=== PATIENT | male | born 1955 | race Caucasian/White ===

== ENCOUNTER 2019-06-29 12:32 | Outpatient (CLI) | payer OTHER, SELFPAY ==
--- NOTE | 2019-06-29 | XR_ITS ---
WS: [id number] RIGHT SHOULDER: 3 VIEW(S) TECHNIQUE: Internal and external rotation with Y view. HISTORY: ROTATOR CUFF TEAR RIGHT COMPARISON: None available. Moderate narrowing of the AC joint. Osteophytes from the distal clavicle and the acromion. 3 mm osteo phyte extends towards the rotator cuff. Glenohumeral joint is well-maintained. No fractures or bone destruction. Visualized RIGHT upper lung is clear. XR/XR shoulder RT min 2V* [id number] IMPRESSION: Moderate AC joint arthropathy. Osteophytes may be causing impingement upon the rotator cuff.
== END 2019-06-29 12:33 | disposition home or self-care (01) ==
LOC: RADOUTREAD 06-30 06:59
PROVIDERS: Visit Provider Internal Medicine
DX: M75.101 Unspecified rotator cuff tear or rupture of right shoulder, not specified as traumatic (principal); M25.711 Osteophyte, right shoulder

== ENCOUNTER 2020-05-30 13:39 | Outpatient (CLI) | payer OTHER, SELFPAY ==
[2020-05-30 16:11] LABS: Basophils # 0.1 10^3/uL (0.0-0.1); Basophils % 1.4 %; Eosinophils # 0.4 10^3/uL (0.0-0.8); Eosinophils % 5.2 %; Hematocrit 46.3 % (42.0-52.0); Hemoglobin 15.4 g/dL (11.7-16.6); Lymphocytes # 1.2 10^3/uL (0.8-4.8); Lymphocytes % 16.2 %; Mean Corpuscular HGB Conc 33.3 g/dL (30.0-36.0); Mean Corpuscular Hemoglobin 28.7 pg (28.0-34.0); Mean Corpuscular Volume 86.2 fL (80-94); Mean Platelet Volume 10.6 fL (7.4-10.4); Monocytes # 0.4 10^3/uL (0.2-0.9); Monocytes % 5.6 %; Neutrophils # 5.11 10^3/uL (1.8-7.7); Neutrophils % 71.3 %; Nucleated Red Blood Cells % 0 %; Platelet Count 622 10^3/cmm (130-400); Red Blood Count 5.37 10^6/uL (4.1-5.3); Red Cell Distribution Width 13.9 % (12.1-15.1); White Blood Count 7.2 10^3/uL (4.0-10.0)
[2020-05-30 16:20] LABS: LAB Peripheral Smear Sent for Review
[2020-05-30 16:46] LABS: Alanine Aminotransferase 13 U/L (0-41); Albumin Level 3.9 g/dL (3.5-5.2); Alkaline Phosphatase 76 IU/L (40-130); Anion Gap 12.8 (5-19); Aspartate Amino Transferase 17 U/L (0-40); Blood Urea Nitrogen 8 mg/dL (8-23); Calcium 8.7 mg/dL (8.5-10.5); Carbon Dioxide 26 mmol/L (22-29); Chloride 103 mmol/L (98-107); Globulin 2.5 g/dL (1.3-4.6); Glomerular Filtration Rate 97.3 mL/min (90-130); Glucose 81 mg/dL (65-115); Lactate Dehydrogenase 225 U/L (135-225); Osmolality Calculated 283 mOsm/kg (285-295); Potassium 3.8 mmol/L (3.5-5.1); Sodium 138 mmol/L (136-145); Total Bilirubin 0.4 mg/dL (0.15-1.2); Total Protein 6.4 g/dL (6.6-8.7)
[2020-05-30 17:20] LABS: Erythrocyte Sedimentation Rate 8 mm/hr (0-10)
--- NOTE | 2020-05-30 19:26 | ONC CON_ITS ---
Dr. Marin New Patient Note Patient: Manas Whitman Unit #: [id number]: 1955 Dicatated By: Ish Marin M.D.Date of Visit: May 30, 2020 Onc MED New Patient/Consult Referring Physician: Dr. Ish Pretty M.D. Chief Complaint: Elevated platelet count. History of Present Illness: This is a 65-year-old man with known Jpcpqiv-Itvqm-Efced disease. I am asked to see him because of an elevated platelet count. In January had been in to see Dr. Pretty for a yearly checkup. His CBC at that time showed a mildly elevated platelet count at 653,000. The remainder of his CBC included a normal hemoglobin at 15.4 g with hematocrit 46%. The white blood cell count was 10,200 with a differential showing 84% granulocytes, 10% lymphocytes, and 4% monocytes. Comprehensive metabolic profile at that time was unremarkable. His repeat CBC on 03/07/2020 showed similar findings with hemoglobin 15.9 g, white blood cell count 9600, and platelet count 646,000. The most recent study, from 04/18/2020 also showed similar results with hemoglobin of 15.8 g, white blood cell count 8300, and platelet count 776,000. He does complain that his energy lately has been crappy, though he is still able to do light work. He thinks some of this may just be anxiety related, as he is in the process of moving and he also is going to be retiring within the next few days. He has good appetite. His weight has been stable. He has no fever or night sweats. He does report having some cough. He does not complain of shortness of breath or chest pain. He has no GI/ complaints other than his bowels tend to be loose, that he attributes to diet. He has some chronic pain and neuropathy associated with the Qfvsrbx-Gwwlr-Gaqdg disease. The pain may have worsened somewhat recently, but he again thinks that it may just be anxiety related. For the past couple of years he has been bruising more easily, but he does admit to taking ibuprofen on a fairly regular basis. He has no history of any thromboembolic disease. Past Medical History: His medical history includes anxiety, Ysdsdeb-Lzwev-Oeteh disease, degenerative disease of the spine, migraine headaches, and peripheral neuropathy. Past Surgical History: His surgical/procedural history includes arthroscopic left knee surgery, C4-5 discectomy, multiple right foot surgeries, and vasectomy. Medications: Ibuprofen Capsule Oral PRN, Sildenafil Citrate 1 Tablet (of 20 mg) Oral daily, traMADol HCl 1 Tablet (of 50 mg) Oral b.i.d., Tylenol Tablet Oral PRN, Xanax 1 Tablet (of 0.25 mg) Oral daily Allergies: Bee Venom, Morphine Sulfate, and Penicillins. Social History: Mr. Whitman is . 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 He will be retiring within the next few days. He had smoked cigarettes in the past, but he quit 40 years ago and was smoke-free for 20 years. He has since then been smoking 3 to 4 cigars/week. He has social alcohol use. Family History: His father at age 89 with complications of mycobacterium avium infection. Mother is still living at age 93 and she has Ovtxywd-Oyimn-Dxhoa disease, as does his brother, age 63. His maternal grandmother had leukemia. Review Of Symptoms: Constitutional - He says his energy is crappy. He thinks that may just be related to anxiety. Appetite is good and weight is stable. No fever or night sweats. ECOG score is 1, Eyes - No recent change in vision, ENMT - He has some hearing loss on the left. No tinnitus. No sinus congestion/drainage. No mouth sores. No sore throat or difficulty swallowing, Hematologic/Lymphatic - He has had easy bruising for the past couple of years, Respiratory - No shortness of breath. He does have some cough cough. No pleuritic pain or hemoptysis, Cardiovascular - No angina pain. No palpitations, Gastrointestinal - No nausea or vomiting. He has occasional acid reflux. His bowels tend to be loose, attributable to diet. No blood in the stool or black stools, Genitourinary (M) - No dysuria or hematuria. No urinary frequency. No urgency or incontinence, Musculoskeletal - He has chronic pain associated with his Naylyoq-Muyrr-Nebuh. He thinks he may have some component of fibromyalgia, Integumentary - No skin rash, Neurologic - He has ocular migraine headaches, estimated at 3 to 4/month. He had an episode of vertigo which was severe enough to require hospitalization. Since then he has mild episodes on an occasional basis. He has numbness/tingling associated with Oqgkbpq-Wteai-Oluij, Psychiatric - He has some chronic anxiety. Recently he has had difficulty sleeping. Vital Signs: Performed on May 30, 2020 14:18: 0, 26.28, 2.15 sq.m, 73.00 in, 99 %, 61 /min, 20 /min, 152/88 mm(hg) (HIGH), 98.8 F, and 199.2 lbs (HIGH). Physical Examination: Constitutional - He looks pretty good generally, Eyes - Sclerae nonicteric. Conjunctivae clear, ENMT - No lesions noted in the oral cavity, Hematologic/Lymphatic - No cervical, clavicular, or axillary adenopathy, Respiratory - Lungs are clear with good air movement bilaterally, Cardiovascular - Heart rhythm is regular. There is no murmur, gallop, or rub noted, Abdomen - Soft. Liver and spleen are not enlarged. There is no abdominal mass or ascites noted and there is no inguinal adenopathy, Extremities - No edema, Integumentary - No rashes. No suspicious skin lesions noted, Neurologic - He does not appear to have any focal neurologic deficit. Impression: 1. Patient with mildly elevated platelet count. The cause is uncertain. However, there is nothing in his clinical evaluation to suggest reactive thrombocytosis and with his other blood counts being normal, this does appear to be very suspicious for essential thrombocythemia. 2. He also has lymphopenia. The cause/clinical significance is uncertain. 3. He has known Vrwwhyp-Rfzaw-Dnsyn disease with peripheral neuropathy. His other medical illnesses include: 4. Degenerative disease of the spine. 5. Chronic migraine. 6. Chronic anxiety. Plan: The laboratory findings were reviewed with the patient and we discussed the clinical implications. He has findings which are very suspicious for essential thrombocythemia, though other myeloproliferative process would be possible and at this point I cannot entirely exclude the possibility of reactive thrombocytosis. At this point I will obtain additional laboratory studies to include CBC, comprehensive metabolic profile, sed rate, LDH level, and a molecular panel for myeloproliferative disease. I will review the blood smear. He will have further evaluation as indicated. Signed By: Ish Marin M.D. <<Signature on File>>
[2020-06-09 21:07] LABS: JAK2 V617 Block Specimen ID NG; JAK2 V617 Clinical Indication NG; JAK2 V617 Mutation DETECTED (NOT DETECTED); JAK2 V617 Specimen Source NG
== END 2020-05-30 13:40 | disposition home or self-care (01) ==
LOC: ONCMED 13:43
PROVIDERS: PCP Internal Medicine; Visit Provider Internal Medicine Medical Oncology
DX: D47.3 Essential (hemorrhagic) thrombocythemia (principal); R53.83 Other fatigue; G60.0 Hereditary motor and sensory neuropathy; M47.9 Spondylosis, unspecified; G43.709 Chronic migraine without aura, not intractable, without status migrainosus; F41.9 Anxiety disorder, unspecified
CPT/HCPCS: 36415; 80053; 81219; 83615; 85025; 85651; 99204

== ENCOUNTER 2020-06-13 08:51 | Outpatient (CLI) | payer OTHER, SELFPAY ==
--- NOTE | 2020-06-13 12:24 | ONC FU_ITS ---
Dr. Marin Patient Follow-Up Note Patient: Manas Whitman Unit #: [id number]: 1955 Dicatated By: Ish Marin M.D.Date of Visit:Jun 13, 2020 Onc Med Follow-up/Prog Note Chief Complaint: Thrombocythemia. History of Present Illness: This is a 65-year-old man with an elevated platelet count and suspected thrombocythemia. In January had been in to see Dr. Pretty for a yearly checkup. His CBC at that time showed a mildly elevated platelet count at 653,000. The remainder of his CBC included a normal hemoglobin at 15.4 g with hematocrit 46%. The white blood cell count was 10,200 with a differential showing 84% granulocytes, 10% lymphocytes, and 4% monocytes. Comprehensive metabolic profile at that time was unremarkable. His repeat CBC on 03/07/2020 showed similar findings with hemoglobin 15.9 g, white blood cell count 9600, and platelet count 646,000 and a subsequent study from 04/18/2020 also showed similar results with hemoglobin of 15.8 g, white blood cell count 8300, and platelet count 776,000. I had seen him initially on 05/30/2020. His CBC showed similar findings with hemoglobin 15.4 g 10 hematocrit 46.3%, white blood cell count 7200, and platelet count 622,000. His blood smear showed numerous large platelet forms, including some giant platelets. His LDH was at the upper limit of normal at 225 U/L. On his molecular analysis the JAK2 V617F mutation was detected. His medical history is significant for known Qcadspr-Zciew-Rlixi disease with associated peripheral neuropathy. His other medical illnesses include degenerative disease of the spine, migraine headaches, and chronic anxiety. His seen today to discuss lab results and further management. He is feeling pretty good generally. His energy lately has been OK. His ECOG score is 1. Medications: Ibuprofen Capsule Oral PRN, Sildenafil Citrate 1 Tablet (of 20 mg) Oral daily, traMADol HCl 1 Tablet (of 50 mg) Oral b.i.d., Tylenol Tablet Oral PRN, Xanax 1 Tablet (of 0.25 mg) Oral daily Allergies: Bee Venom, Morphine Sulfate, and Penicillins. Vital Signs: Performed on Jun 13, 2020 08:53 Height - 73.00 in Weight - 195.0 lbs (LOW) BSA - 2.13 sq.m BMI - 25.73 Temperature - 98.4 F Pulse - 64 /min Respiration - 18 /min BP - 154/82 mm(hg) (HIGH) O2 Sat - 98 % Pain - 0 Physical Examination: Constitutional - He looks good generally, Abdomen - Spleen is not palpable. Lab/Imaging: Test performed on May 30, 2020 15:35 LDH (Total) 225 U/L Sodium 138 mmol/L Potassium 3.8 mmol/L Chloride 103 mmol/L CO2 26 mmol/L Anion Gap 12.8 BUN 8 mg/dL Creatinine 0.8 mg/dL Cr Clearance (Est) 119.2200 mL/min eGFR 97.3 mL/min Glucose 81 mg/dL Osmolality - Calculated 283 mOsm/kg Calcium 8.7 mg/dL Protein, Total 6.4 g/dL Albumin 3.9 g/dL Globulin 2.5 g/dL Bilirubin, Total 0.4 mg/dL ALT (SGPT) 13 U/L AST (SGOT) 17 U/L Alkaline Phosphatase 76 IU/L ESR (Sed Rate) 8 mm/hr WBC 7.2 10 3/uL RBC 5.37 10 6/uL HGB 15.4 g/dL HCT 46.3 % MCV 86.2 fL MCH 28.7 pg MCHC 33.3 g/dL RDW 13.9 % Platelet Count 622 10 3/cmm MPV 10.6 fL Neutrophils 5.11 10 3/uL Lymphocytes 1.2 10 3/uL Monocytes 0.4 10 3/uL Eosinophils 0.4 10 3/uL Basophils 0.1 10 3/uL Neutrophil % 71.3 % Lymphocyte % 16.2 % Monocyte % 5.6 % Eosinophil % 5.2 % Basophils % 1.4 % NRBC % 0 % Impression: 1. Patient with mild to moderately elevated platelet count. His laboratory studies and clinical presentation appear consistent with essential thrombocythemia. 2. He also has lymphopenia. The cause/clinical significance is uncertain. 3. He has known Ayewepc-Pmjny-Avgsw disease with peripheral neuropathy. His other medical illnesses include: 4. Degenerative disease of the spine. 5. Chronic migraine. 6. Chronic anxiety. Plan: The laboratory results were reviewed with the patient and we discussed the clinic complications. With the molecular study being positive for the JAK2 V617F mutation, he clearly has a myeloproliferative neoplasm. This is most likely going to be essential thrombocythemia. With his age greater than 60 and with the positive mutation study, he is in a high risk subgroup and he will therefore be recommended to have treatment with hydroxyurea along with aspirin prophylaxis. However, prior to starting treatment he is recommended to undergo bone marrow aspiration/biopsy to complete his initial evaluation. Qemg-ki-eopd time with patient was 30 minutes, greater than 50% spent in counseling/discussion. Signed By: Ish Marin M.D. <<Signature on File>>
== END 2020-06-13 08:52 | disposition home or self-care (01) ==
LOC: ONCMED 08:53
PROVIDERS: PCP Internal Medicine; Visit Provider Internal Medicine Medical Oncology
DX: D47.3 Essential (hemorrhagic) thrombocythemia (principal); D72.810 Lymphocytopenia; G60.0 Hereditary motor and sensory neuropathy; M47.9 Spondylosis, unspecified; G43.709 Chronic migraine without aura, not intractable, without status migrainosus; F41.9 Anxiety disorder, unspecified
CPT/HCPCS: 99214

== ENCOUNTER → 2020-06-28 14:54 | Outpatient (BNVA) | payer OTHER, SELFPAY | PROVIDERS: PCP Internal Medicine | DX: Z11.59 Encounter for screening for other viral diseases (principal) | CPT/HCPCS: 87635 ==

== ENCOUNTER 2020-06-30 10:15 | Day surgery (SDC) | payer OTHER, SELFPAY ==
[2020-06-30] VITALS (7 sets, daily range): BP systolic 105–160; BP diastolic 61–96; PULSE 62–70; RESP 14–24; TEMP 36.3; O2SAT 96–100
--- NOTE | 2020-06-30 10:54 | ANES.PREANE2 ---
Pre-Anesthetic Assessment Pre-Anesthetic Assessment: Height/Weight: Height 1.85 m Temp Pulse Resp BP Pulse Ox 97.3 F L 67 16 145/94 97 06/30/20 10:30 06/30/20 10:30 06/30/20 10:30 06/30/20 10:30 06/30/20 10:30 Preop Diagnosis: Bone Marrow biopsy Proposed Procedure: Operation Date: 06/30/20 11:00 Proposed Procedures p Bone Marrow Biospy With Aspiration d47.3(Not Applicable) - Vickie Blackwell MD Was Beta Khoa taken within 24 hours: N/A Last intake: Intake Last Liquid Date 06/29/20 Last Liquid Time 22:00 Last Solid Date 06/29/20 Last Solid Time 22:00 Last Intake: 22:00 Social: Social History: Tobacco and No alcohol Packs per day: 2-3 cigars daily Exam: Pre-Anes Outpt Exam: alert, oriented x 3, clear to auscultation bilaterally and regular rate & rhythm Airway: Submandibular: WNL Cervical ROM: WNL MP: 1 Dentition: Full Pulmonary: Pulmonary: None reported CV/HEM: CV/HEM: None reported : : None reported Hepatic: Hepatic: None reported GI: GI: GERD (food related) Metabolic: Metabolic: None reported Musc/skel: Musc/skel: Weakness Comments: CMT, ruling out ET Neuropsych: Neuropsych: None reported Anesthetic Plan: ASA status: 3 Anesthesia: MAC Risk of > 500 ml blood loss (7ml/kg in children): No Data Anesthesia Cardiac Studies: No Data to Display
[2020-06-30] MEDS: sodium chloride 0.9% 1,000 ML 30 ML IV (11:18)
[2020-06-30 11:32] LABS: Basophils # 0.1 10^3/uL (0.0-0.1); Basophils % 1.7 %; Eosinophils # 0.4 10^3/uL (0.0-0.8); Eosinophils % 5.5 %; Hematocrit 50.1 % (42.0-52.0); Hemoglobin 16.3 g/dL (11.7-16.6); Lymphocytes # 1.1 10^3/uL (0.8-4.8); Lymphocytes % 14.5 %; Mean Corpuscular HGB Conc 32.5 g/dL (30.0-36.0); Mean Corpuscular Hemoglobin 28.1 pg (28.0-34.0); Mean Corpuscular Volume 86.2 fL (80-94); Mean Platelet Volume 10.7 fL (7.4-10.4); Monocytes # 0.5 10^3/uL (0.2-0.9); Monocytes % 6.7 %; Neutrophils # 5.42 10^3/uL (1.8-7.7); Neutrophils % 71.3 %; Nucleated Red Blood Cells % 0 %; Platelet Count 780 10^3/cmm (130-400); Red Blood Count 5.81 10^6/uL (4.1-5.3); Red Cell Distribution Width 14.5 % (12.1-15.1); White Blood Count 7.6 10^3/uL (4.0-10.0)
--- NOTE | 2020-06-30 11:52 | PM.BMB ---
Bone Marrow Biopsy Bone Marrow Biopsy: I was consulted by [] office regarding bone marrow biopsy on [Manas Whitman]. Briefly, the patient is a [65] year old [male] with [thrombocytosis]. In the Outpatient Services Department, with nursing staff and laboratory technologists in attendance, the procedure was discussed with the patient. Appropriate consent form had been signed. Appropriate alternatives, benefits and risks of procedure were discussed with the patient and he was pre-operatively assessed with a history and physical by myself and cleared for the biopsy procedure. The patient did request IV sedation and that was provided by the Anesthesia Department. under aseptic condition right posterior iliac area was cleaned and prepped and local anesthesia was given about 15 cc of bone marrow aspirate and core biopsy was obtained . Patient tolerated the procedure well and postprocedure nursing instructions were given. . Specimen was sent for routine histopathology, flow cytometry cytogenetics , and MPS panel Thank you for allowing me to participate in this patient's care and diagnosis. Coding Level of Care Code Acute Track Laying Supervisor for Singh Villarreal
[2020-07-01 14:07] LABS: Miscellaneous Test See Scanned Lab Rpt
== END 2020-06-30 12:23 | disposition home or self-care (01) ==
PROVIDERS: PCP Internal Medicine; Visit Provider Internal Medicine Hematology & Oncology
PROC: 07DT3ZX Extraction of Bone Marrow, Percutaneous Approach, Diagnostic (ICD-10-PCS; CPT 38222; principal; 2020-06-30 11:00)
DX: D47.3 Essential (hemorrhagic) thrombocythemia (principal)
CPT/HCPCS: 12345; 36415; 38222; 85025; 88184; 88185; 88237; 88264; 88305; J7030

== ENCOUNTER 2020-07-15 08:51 | Outpatient (CLI) | payer OTHER, SELFPAY ==
--- NOTE | 2020-07-17 09:46 | ONC FU_ITS ---
Dr. Marin Patient Follow-Up Note Patient: Manas Whitman Unit #: [id number]: 1955 Dicatated By: Ish Marin M.D.Date of Visit:Jul 15, 2020 Onc Med Follow-up/Prog Note Chief Complaint: Thrombocythemia. History of Present Illness: This is a 65-year-old man with an elevated platelet count and suspected thrombocythemia. In January had been in to see Dr. Pretty for a yearly checkup. His CBC at that time showed a mildly elevated platelet count at 653,000. The remainder of his CBC included a normal hemoglobin at 15.4 g with hematocrit 46%. The white blood cell count was 10,200 with a differential showing 84% granulocytes, 10% lymphocytes, and 4% monocytes. Comprehensive metabolic profile at that time was unremarkable. His repeat CBC on 03/07/2020 showed similar findings with hemoglobin 15.9 g, white blood cell count 9600, and platelet count 646,000 and a subsequent study from 04/18/2020 also showed similar results with hemoglobin of 15.8 g, white blood cell count 8300, and platelet count 776,000. I had seen him initially on 05/30/2020. His CBC showed similar findings with hemoglobin 15.4 g 10 hematocrit 46.3%, white blood cell count 7200, and platelet count 622,000. His blood smear showed numerous large platelet forms, including some giant platelets. His LDH was at the upper limit of normal at 225 U/L. On his molecular analysis the JAK2 V617F mutation was detected. He underwent bone marrow aspiration/biopsy on 06/30/2020. The cellularity was normal, averaging 30 to 50%. Megakaryocytic hyperplasia was noted with several bizarre megakaryocyte forms and megakaryocyte clusters identified. There was no significant reticulin fibrosis seen on the reticulin stain. Iron stores appeared adequate and there were no ring sideroblasts identified. Rare benign-appearing lymphoid aggregates were noted on the core biopsy. The standard chromosome analysis was normal. Overall, the findings were consistent with essential thrombocythemia. His medical history is significant for known Uairnju-Hftun-Pquuo disease with associated peripheral neuropathy. His other medical illnesses include degenerative disease of the spine, migraine headaches, and chronic anxiety. He returns today for review of the bone marrow findings and to discuss further management. His main complaint is that he is still having significant fatigue. This is a fairly recent onset. He initially thought it might just be due to the fact that he was retiring, but it has persisted. He has otherwise been feeling okay. He indicates that he has a tendency to bleed easily from minor cuts. However, he does not have easy bruising or other bleeding manifestations. He has had no prior thromboembolism. Medications: Ibuprofen Capsule Oral PRN, Sildenafil Citrate 1 Tablet (of 20 mg) Oral daily, traMADol HCl 1 Tablet (of 50 mg) Oral b.i.d., Tylenol Tablet Oral PRN, Xanax 1 Tablet (of 0.25 mg) Oral daily Allergies: Bee Venom, Morphine Sulfate, and Penicillins. Problem List: 1. Essential thrombocythemia. 2. He also has lymphopenia. The cause/clinical significance is uncertain. 3. He has known Pcxtucb-Ixllu-Ltvdh disease with peripheral neuropathy. 4. Degenerative disease of the spine. 5. Chronic migraine. 6. Chronic anxiety. Problems Addressed with this Encounter and Plan: Essential thrombocythemia. Molecular analysis was positive for the JAK2 (V617F) mutation. His bone marrow aspiration/biopsy showed no significant reticulin fibrosis. With his age greater than 60 and with the molecular analysis positive for the JAK2 mutation, he is in the high risk category. Per NCCN guidelines, he is recommended to have treatment with hydroxyurea together with aspirin prophylaxis. As such, he will now begin hydroxyurea at 500 mg twice daily together with aspirin 81 mg daily. His blood counts will be monitored weekly and the hydroxyurea dosage will be adjusted accordingly. I reviewed side effects associated with the hydroxyurea, the most significant of which would be low blood counts. He is concerned about the possibility of it interacting with his Loooqvz-Pdnti-Pthrz disease. To my knowledge there is no significant risk associated with that. He will be scheduled for a follow-up visit in 2 weeks. Signed By: Ish Marin M.D. <<Signature on File>>
== END 2020-07-15 08:52 | disposition home or self-care (01) ==
LOC: ONCMED 08:53
PROVIDERS: PCP Internal Medicine; Visit Provider Internal Medicine Medical Oncology
DX: D47.3 Essential (hemorrhagic) thrombocythemia (principal); G60.0 Hereditary motor and sensory neuropathy; D72.810 Lymphocytopenia; M48.9 Spondylopathy, unspecified; G43.709 Chronic migraine without aura, not intractable, without status migrainosus; F41.9 Anxiety disorder, unspecified; Z79.899 Other long term (current) drug therapy
CPT/HCPCS: 99214

== ENCOUNTER 2020-07-21 06:38 | Outpatient (CLI) | payer OTHER, SELFPAY ==
[2020-07-21 14:48] LABS: Basophils # 0.1 10^3/uL (0.0-0.1); Basophils % 1.3 %; Eosinophils # 0.3 10^3/uL (0.0-0.8); Eosinophils % 3.9 %; Hematocrit 48.9 % (42.0-52.0); Hemoglobin 16.1 g/dL (11.7-16.6); Lymphocytes # 1.1 10^3/uL (0.8-4.8); Lymphocytes % 16.1 %; Mean Corpuscular HGB Conc 32.9 g/dL (30.0-36.0); Mean Corpuscular Hemoglobin 28.6 pg (28.0-34.0); Mean Corpuscular Volume 86.9 fL (80-94); Mean Platelet Volume 10.1 fL (7.4-10.4); Monocytes # 0.4 10^3/uL (0.2-0.9); Monocytes % 5.7 %; Neutrophils % 72.7 %; Nucleated Red Blood Cells % 0 %; Platelet Count 729 10^3/cmm (130-400); Red Blood Count 5.63 10^6/uL (4.1-5.3); Red Cell Distribution Width 14.6 % (12.1-15.1); White Blood Count 6.9 10^3/uL (4.0-10.0)
== END 2020-07-21 06:39 | disposition home or self-care (01) ==
LOC: ONCMED 06:40
PROVIDERS: PCP Internal Medicine; Visit Provider Internal Medicine Medical Oncology
DX: D69.3 Immune thrombocytopenic purpura (principal)
CPT/HCPCS: 36415; 85025

== ENCOUNTER 2020-07-27 13:11 | Outpatient (CLI) | payer OTHER, SELFPAY ==
[2020-07-27 15:11] LABS: Basophils # 0.1 10^3/uL (0.0-0.1); Basophils % 1.3 %; Eosinophils # 0.3 10^3/uL (0.0-0.8); Eosinophils % 4.1 %; Hematocrit 47.7 % (42.0-52.0); Hemoglobin 15.6 g/dL (11.7-16.6); Lymphocytes # 1.1 10^3/uL (0.8-4.8); Lymphocytes % 15.2 %; Mean Corpuscular HGB Conc 32.7 g/dL (30.0-36.0); Mean Corpuscular Hemoglobin 28.9 pg (28.0-34.0); Mean Corpuscular Volume 88.3 fL (80-94); Mean Platelet Volume 10.1 fL (7.4-10.4); Monocytes # 0.3 10^3/uL (0.2-0.9); Monocytes % 4.6 %; Neutrophils # 5.14 10^3/uL (1.8-7.7); Neutrophils % 74.4 %; Nucleated Red Blood Cells % 0 %; Platelet Count 635 10^3/cmm (130-400); Red Cell Distribution Width 15.7 % (12.1-15.1); White Blood Count 6.9 10^3/uL (4.0-10.0)
[2020-07-27 15:34] LABS: Alanine Aminotransferase 23 U/L (0-41); Albumin Level 3.8 g/dL (3.5-5.2); Alkaline Phosphatase 78 IU/L (40-130); Anion Gap 12.3 (5-19); Aspartate Amino Transferase 18 U/L (0-40); Blood Urea Nitrogen 11 mg/dL (8-23); Calcium 8.6 mg/dL (8.5-10.5); Carbon Dioxide 27 mmol/L (22-29); Chloride 103 mmol/L (98-107); Globulin 2.8 g/dL (1.3-4.6); Glucose 87 mg/dL (65-115); Lactate Dehydrogenase 165 U/L (135-225); Osmolality Calculated 285 mOsm/kg (285-295); Potassium 4.3 mmol/L (3.5-5.1); Sodium 138 mmol/L (136-145); Thyroid Stimulating Hormone 3.83 uIU/mL (0.27-4.20); Total Bilirubin 0.4 mg/dL (0.15-1.2); Total Protein 6.6 g/dL (6.6-8.7)
[2020-07-27 16:11] LABS: Vitamin B12 218 pg/mL (232-1245)
== END 2020-07-27 13:12 | disposition home or self-care (01) ==
LOC: ONCMED 13:11
PROVIDERS: PCP Internal Medicine; Visit Provider Internal Medicine Medical Oncology
DX: D47.3 Essential (hemorrhagic) thrombocythemia (principal); D51.9 Vitamin B12 deficiency anemia, unspecified; E03.9 Hypothyroidism, unspecified
CPT/HCPCS: 36415; 80053; 82607; 83615; 84443; 85025

== ENCOUNTER 2020-07-28 06:02 | Outpatient (CLI) | payer OTHER, SELFPAY ==
--- NOTE | 2020-07-28 09:04 | ONC FU_ITS ---
Dr. Marin Patient Follow-Up Note Patient: Manas Whitman Unit #: [id number]: 1955 Dicatated By: Ish Marin M.D.Date of Visit:Jul 28, 2020 Onc Med Follow-up/Prog Note Chief Complaint: Thrombocythemia. History of Present Illness: This is a 65-year-old man with an elevated platelet count and suspected thrombocythemia. In January had been in to see Dr. Pretty for a yearly checkup. His CBC at that time showed a mildly elevated platelet count at 653,000. The remainder of his CBC included a normal hemoglobin at 15.4 g with hematocrit 46%. The white blood cell count was 10,200 with a differential showing 84% granulocytes, 10% lymphocytes, and 4% monocytes. Comprehensive metabolic profile at that time was unremarkable. His repeat CBC on 03/07/2020 showed similar findings with hemoglobin 15.9 g, white blood cell count 9600, and platelet count 646,000 and a subsequent study from 04/18/2020 also showed similar results with hemoglobin of 15.8 g, white blood cell count 8300, and platelet count 776,000. I had seen him initially on 05/30/2020. His CBC showed similar findings with hemoglobin 15.4 g 10 hematocrit 46.3%, white blood cell count 7200, and platelet count 622,000. His blood smear showed numerous large platelet forms, including some giant platelets. His LDH was at the upper limit of normal at 225 U/L. On his molecular analysis the JAK2 (V617F) mutation was detected. He underwent bone marrow aspiration/biopsy on 06/30/2020. The cellularity was normal, averaging 30 to 50%. Megakaryocytic hyperplasia was noted with several bizarre megakaryocyte forms and megakaryocyte clusters identified. There was no significant reticulin fibrosis seen on the reticulin stain. Iron stores appeared adequate and there were no ring sideroblasts identified. Rare benign-appearing lymphoid aggregates were noted on the core biopsy. The standard chromosome analysis was normal. Overall, the findings were consistent with essential thrombocythemia. With age greater than 60 and with a JAK2 (V617F) mutation he met NCCN criteria for high risk disease, and he was recommended to begin treatment with hydroxyurea along with aspirin prophylaxis. His medical history is significant for known Rdlbqnl-Twaif-Olsxc disease with associated peripheral neuropathy. His other medical illnesses include degenerative disease of the spine, migraine headaches, and chronic anxiety. INTERIM HISTORY: As of his follow-up visit on 07/15/2020 he began hydroxyurea at 500 mg daily. He has been tolerating it with no adverse effects. He continues to have significant fatigue, which has been somewhat of a concern. His ECOG score is 1. He has good appetite. He has had no fever or night sweats. He has had no mouth sores. He has no shortness of breath, cough, or chest pain. He has no GI complaints other than some intermittent diarrhea, which is chronic. Bladder function has been okay. He has no significant joint or bone pain. He has had some numbness in his fingertips at times. He has no other focal neurologic symptoms. Medications: Ibuprofen Capsule Oral PRN, Sildenafil Citrate 1 Tablet (of 20 mg) Oral daily, traMADol HCl 1 Tablet (of 50 mg) Oral b.i.d., Tylenol Tablet Oral PRN, Xanax 1 Tablet (of 0.25 mg) Oral daily Allergies: Bee Venom, Morphine Sulfate, and Penicillins. Vital Signs: Performed on Jul 28, 2020 08:30 Height - 73.00 in Weight - 197.4 lbs (HIGH) BSA - 2.14 sq.m BMI - 26.04 Temperature - 98.0 F (LOW) Pulse - 70 /min Respiration - 16 /min BP - 149/87 mm(hg) (HIGH) O2 Sat - 98 % Pain - 0 Physical Examination: Constitutional - He looks good generally, Eyes - Sclerae nonicteric. Conjunctivae clear, ENMT - No lesions noted in the oral cavity, Hematologic/Lymphatic - No cervical, clavicular, or axillary adenopathy, Respiratory - Lungs are clear with good air movement bilaterally, Cardiovascular - Heart rhythm is regular. There is no murmur, gallop, or rub noted, Abdomen - Soft. Liver and spleen are not enlarged. There is no abdominal mass or ascites noted and there is no inguinal adenopathy, Extremities - No edema. Lab/Imaging: CBC shows hemoglobin 15.6 g, white blood cell count 6900, and platelet count 635,000. Comprehensive metabolic profile is unremarkable. LDH is normal at 165 U/L. TSH is normal at 3.83 ???IU/mL. The B12 level is slightly low at 218 pg/mL. Problem List: 1. 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 2. He also has lymphopenia. The cause/clinical significance is uncertain. 3. He has known Ywlegwf-Qlcfi-Kxqly disease with peripheral neuropathy. 4. Degenerative disease of the spine. 5. Chronic migraine. 6. Chronic anxiety. Problems Addressed with this Encounter and Plan: 1. Essential thrombocythemia. Molecular analysis was positive for the JAK2 (V617F) mutation. His bone marrow aspiration/biopsy showed no significant reticulin fibrosis. With his age greater than 60 and with the molecular analysis positive for the JAK2 mutation, he was in the high risk category. Per NCCN guidelines, he was recommended to have treatment with hydroxyurea together with aspirin prophylaxis. As of 07/15/2019 when he began treatment with hydroxyurea 500 mg daily together with aspirin 81 mg daily. He has been tolerating it well. Platelet count is down just slightly, which is not unexpected. He will now increase the hydroxyurea to 500 mg twice daily. His blood counts will be monitored at 2-week intervals for the next month, then monthly. I will see him again in 3 months. 2. He has had significant fatigue, and his B12 level is slightly low. This may or may not be clinically significant. At least initially will have him start an oral B12 supplement. I will recheck his B12 level with MMA and homocystine levels in 1 month. Signed By: Ish Marin M.D. <<Signature on File>>
== END 2020-07-28 06:03 | disposition home or self-care (01) ==
LOC: ONCMED 06:05
PROVIDERS: PCP Internal Medicine; Visit Provider Internal Medicine Medical Oncology
DX: D47.3 Essential (hemorrhagic) thrombocythemia (principal); D72.810 Lymphocytopenia; G60.0 Hereditary motor and sensory neuropathy; M47.9 Spondylosis, unspecified; G43.909 Migraine, unspecified, not intractable, without status migrainosus; F41.9 Anxiety disorder, unspecified
CPT/HCPCS: 99214

== ENCOUNTER 2020-08-10 06:10 | Outpatient (CLI) | payer OTHER, SELFPAY ==
[2020-08-10 10:05] LABS: Basophils # 0.1 10^3/uL (0.0-0.1); Basophils % 1.5 %; Eosinophils # 0.1 10^3/uL (0.0-0.8); Eosinophils % 2.8 %; Hematocrit 49.2 % (42.0-52.0); Hemoglobin 16.1 g/dL (11.7-16.6); Lymphocytes # 0.6 10^3/uL (0.8-4.8); Lymphocytes % 15.3 %; Mean Corpuscular HGB Conc 32.7 g/dL (30.0-36.0); Mean Corpuscular Hemoglobin 29.5 pg (28.0-34.0); Mean Corpuscular Volume 90.3 fL (80-94); Mean Platelet Volume 9.7 fL (7.4-10.4); Monocytes # 0.2 10^3/uL (0.2-0.9); Monocytes % 4.5 %; Neutrophils # 3.02 10^3/uL (1.8-7.7); Neutrophils % 75.4 %; Nucleated Red Blood Cells % 0 %; Platelet Count 340 10^3/cmm (130-400); Red Blood Count 5.45 10^6/uL (4.1-5.3); Red Cell Distribution Width 18.1 % (12.1-15.1)
== END 2020-08-10 06:11 | disposition home or self-care (01) ==
LOC: ONCMED 06:11
PROVIDERS: PCP Internal Medicine; Visit Provider Internal Medicine Medical Oncology
DX: D47.3 Essential (hemorrhagic) thrombocythemia (principal); E53.8 Deficiency of other specified B group vitamins
CPT/HCPCS: 85025

== ENCOUNTER 2020-09-20 08:54 | Outpatient (CLI) | payer OTHER, SELFPAY ==
[2020-08-24 09:02] LABS: Basophils # 0.1 10^3/uL (0.0-0.1); Basophils % 2.1 %; Eosinophils # 0.1 10^3/uL (0.0-0.8); Eosinophils % 4.2 %; Hematocrit 42.1 % (42.0-52.0); Hemoglobin 14.2 g/dL (11.7-16.6); Lymphocytes # 0.7 10^3/uL (0.8-4.8); Lymphocytes % 22.6 %; Mean Corpuscular HGB Conc 33.7 g/dL (30.0-36.0); Mean Corpuscular Hemoglobin 30.5 pg (28.0-34.0); Mean Corpuscular Volume 90.3 fL (80-94); Mean Platelet Volume 9.6 fL (7.4-10.4); Monocytes # 0.2 10^3/uL (0.2-0.9); Monocytes % 5.6 %; Neutrophils # 1.87 10^3/uL (1.8-7.7); Neutrophils % 65.2 %; Nucleated Red Blood Cells % 0 %; Platelet Count 178 10^3/cmm (130-400); Red Blood Count 4.66 10^6/uL (4.1-5.3); White Blood Count 2.9 10^3/uL (4.0-10.0)
[2020-08-24 09:19] LABS: Homocysteine 14.19
[2020-08-24 09:36] LABS: Vitamin B12 1675 pg/mL (232-1245)
[2020-08-28 08:23] LABS: Methylmalonic Acid 92 nmol/L (87-318)
[2020-09-20 09:24] LABS: Basophils % 0.9 %; Eosinophils # 0.1 10^3/uL (0.0-0.8); Hemoglobin 11.8 g/dL (11.7-16.6); Lymphocytes # 0.8 10^3/uL (0.8-4.8); Lymphocytes % 34.6 %; Mean Corpuscular HGB Conc 34.7 g/dL (30.0-36.0); Mean Corpuscular Hemoglobin 32.2 pg (28.0-34.0); Mean Corpuscular Volume 92.9 fL (80-94); Mean Platelet Volume 9.4 fL (7.4-10.4); Monocytes # 0.2 10^3/uL (0.2-0.9); Neutrophils # 1.18 10^3/uL (1.8-7.7); Neutrophils % 51.1 %; Nucleated Red Blood Cells % 0 %; Platelet Count 237 10^3/cmm (130-400); Red Blood Count 3.66 10^6/uL (4.1-5.3); Red Cell Distribution Width 22.4 % (12.1-15.1); White Blood Count 2.3 10^3/uL (4.0-10.0)
== END 2020-09-20 08:55 | disposition home or self-care (01) ==
PROVIDERS: PCP Internal Medicine; Visit Provider Internal Medicine Medical Oncology
DX: D47.3 Essential (hemorrhagic) thrombocythemia (principal)
CPT/HCPCS: 36415; 82607; 83090; 83921; 85025

== ENCOUNTER 2020-10-04 06:03 | Outpatient (CLI) | payer OTHER, SELFPAY ==
[2020-10-04 10:23] LABS: Basophils % 0.5 %; Eosinophils # 0.1 10^3/uL (0.0-0.8); Eosinophils % 1.6 %; Hemoglobin 11.7 g/dL (11.7-16.6); Lymphocytes % 25.5 %; Mean Corpuscular HGB Conc 34.4 g/dL (30.0-36.0); Mean Corpuscular Hemoglobin 33.3 pg (28.0-34.0); Mean Corpuscular Volume 96.9 fL (80-94); Mean Platelet Volume 10.1 fL (7.4-10.4); Monocytes # 0.4 10^3/uL (0.2-0.9); Monocytes % 10.9 %; Neutrophils # 2.31 10^3/uL (1.8-7.7); Neutrophils % 61.2 %; Nucleated Red Blood Cells % 0 %; Platelet Count 260 10^3/cmm (130-400); Red Blood Count 3.51 10^6/uL (4.1-5.3); Red Cell Distribution Width 24.8 % (12.1-15.1); White Blood Count 3.8 10^3/uL (4.0-10.0)
== END 2020-10-04 06:04 | disposition home or self-care (01) ==
LOC: ONCMED 06:03
PROVIDERS: PCP Internal Medicine; Visit Provider Internal Medicine Medical Oncology
DX: D47.3 Essential (hemorrhagic) thrombocythemia (principal)
CPT/HCPCS: 36415; 85025

== ENCOUNTER 2020-10-08 16:02 | Emergency (ER) | payer OTHER, SELFPAY ==
[2020-10-08 16:23] VITALS: BP 157/102; PULSE 84; RESP 18; TEMP 36.2; O2SAT 97; BMI 25.7
--- NOTE | 2020-10-08 16:37 | CTR_ITS ---
PROCEDURE INFORMATION: Exam: CT Head Without Contrast Exam date and time: 10/08/2020 4:47 PM Age: 65 years old Clinical indication: Other: Vision changes; Additional info: Stroke symptoms TECHNIQUE: Imaging protocol: Computed tomography of the head without contrast. Radiation optimization: All CT scans at this facility use at least one of these dose optimization techniques: automated exposure control; mA and/or kV adjustment per patient size (includes targeted exams where dose is matched to clinical indication); or iterative reconstruction. Other technique: STROKE PROTOCOL was implemented. COMPARISON: No relevant prior studies available. RADIATION DOSE METRICS: Total DLP (mGy-cm): 927.26 FINDINGS: Brain: Normal. No hemorrhage. Unremarkable white matter. No mass effect. Cerebral ventricles: No ventriculomegaly. Bones/joints: Unremarkable. No acute fracture. Paranasal sinuses: Visualized sinuses are unremarkable. No fluid levels. Mastoid air cells: Visualized mastoid air cells are well aerated. Soft tissues: Unremarkable. CT/CT head wo con* [id number] IMPRESSION: No acute intracranial abnormality. ASSESSMENT: ASPECTS ([place] Stroke Program Early CT Score) is 10. Radiation Dose CTDIVOL = (mGy): DLP = 927.26 (mGy-cm)
[2020-10-08 16:42] LABS: Glucose Point of Care 105 mg/dL (70-110)
--- NOTE | 2020-10-08 16:44 | CTR_ITS ---
PROCEDURE INFORMATION: Exam: CT Angiography Head With Contrast, Arteriography Exam date and time: 10/08/2020 4:55 PM Age: 65 years old Clinical indication: Visual disturbance; Additional info: Stroke like symptoms TECHNIQUE: Imaging protocol: Computed tomography angiography of the head with contrast. Exam focused on the arteries. 3D rendering (Not supervised by radiologist): MIP and/or 3D reconstructed images were created by the technologist. Radiation optimization: All CT scans at this facility use at least one of these dose optimization techniques: automated exposure control; mA and/or kV adjustment per patient size (includes targeted exams where dose is matched to clinical indication); or iterative reconstruction. Contrast material: OMNI 350; Contrast volume: 95 ml; Contrast route: INTRAVENOUS (IV); COMPARISON: No relevant prior studies available. RADIATION DOSE METRICS: Total DLP (mGy-cm): 2156.31 FINDINGS: ANTERIOR CIRCULATION: Right internal carotid artery: Unremarkable. Intracranial segment is patent with no significant stenosis. No aneurysm. Right middle cerebral artery: Unremarkable. No occlusion or significant stenosis. No aneurysm. Right anterior cerebral artery: Unremarkable. No occlusion or significant stenosis. No aneurysm. Left internal carotid artery: Unremarkable. Intracranial segment is patent with no significant stenosis. No aneurysm. Left middle cerebral artery: Unremarkable. No occlusion or significant stenosis. No aneurysm. Left anterior cerebral artery: Unremarkable. No occlusion or significant stenosis. No aneurysm. POSTERIOR CIRCULATION: Right vertebral artery: Unremarkable. No occlusion or significant stenosis. No aneurysm. Left vertebral artery: Unremarkable. No occlusion or significant stenosis. No aneurysm. Basilar artery: Unremarkable. No occlusion or significant stenosis. No aneurysm. Right posterior cerebral artery: Unremarkable. No occlusion or significant stenosis. No aneurysm. Left posterior cerebral artery: Unremarkable. No occlusion or significant stenosis. No aneurysm. Brain: No definite mass, mass effect, or midline shift. Cerebral ventricles: No ventriculomegaly. Bones/joints: Unremarkable. No acute fracture. Soft tissues: Unremarkable. IMPRESSION: No large vessel stenosis or occlusion. PROCEDURE INFORMATION: Exam: CT Angiography Neck With Contrast Exam date and time: 10/08/2020 4:55 PM Age: 65 years old Clinical indication: Visual disturbance; Additional info: Stroke like symptoms TECHNIQUE: Imaging protocol: Computed tomography angiography of the neck with contrast. 3D rendering (Not supervised by radiologist): MIP and/or 3D reconstructed images were created by the technologist. Radiation optimization: All CT scans at this facility use at least one of these dose optimization techniques: automated exposure control; mA and/or kV adjustment per patient size (includes targeted exams where dose is matched to clinical indication); or iterative reconstruction. Contrast material: OMNI 350; Contrast volume: 95 ml; Contrast route: INTRAVENOUS (IV); COMPARISON: No relevant prior studies available. RADIATION DOSE METRICS: Total DLP (mGy-cm): 2156.31 FINDINGS: Right common carotid artery: No stenosis. No dissection or occlusion. Right internal carotid artery: No stenosis of the extracranial segment. No dissection or occlusion. Right external carotid artery: No occlusion or stenosis of the origin. Right vertebral artery: No stenosis. No dissection or occlusion. Left common carotid artery: No stenosis. No dissection or occlusion. Left internal carotid artery: No stenosis of the extracranial segment. No dissection or occlusion. Left external carotid artery: No occlusion or stenosis of the origin. Left vertebral artery: No stenosis. No dissection or occlusion. Other vasculature: Mild C3-C4 anterolisthesis. Straightening of natural cervical lordosis. No fractures. Bones/joints: The cervical spine demonstrates marked degenerative changes at multiple levels. Soft tissues: Normal. No significant soft tissue swelling. CT/CT angio headneck* [id number] IMPRESSION: 1. Unremarkable CT angiogram neck. No vascular occlusion. 2. No carotid artery stenosis. REFERENCES: NASCET CRITERIA. The degree of internal carotid artery stenosis is based on NASCET criteria. Normal is no stenosis. Mild is less than 50% stenosis. Moderate is 50-69% stenosis. Severe is 70% to 99% stenosis. Total occlusion is no detectable patent lumen. Radiation Dose CTDIVOL = (mGy): DLP = 2156.31~2156.31 (mGy-cm)
--- NOTE | 2020-10-08 16:49 | ECG_ITS ---
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
[2020-10-08] MEDS: iohexol 350 mg/mL 100 mL Btl IV (16:57)
[2020-10-08 17:05] VITALS: BP 163/84; PULSE 70; RESP 15; O2SAT 99
[2020-10-08 17:06] LABS: Basophils % 0.8 %; Eosinophils # 0.1 10^3/uL (0.0-0.8); Eosinophils % 2.2 %; Hematocrit 37.2 % (42.0-52.0); Hemoglobin 12.9 g/dL (11.7-16.6); Lymphocytes # 1.1 10^3/uL (0.8-4.8); Lymphocytes % 22.9 %; Mean Corpuscular HGB Conc 34.7 g/dL (30.0-36.0); Mean Corpuscular Hemoglobin 33.3 pg (28.0-34.0); Mean Corpuscular Volume 96.1 fL (80-94); Monocytes # 0.5 10^3/uL (0.2-0.9); Monocytes % 9.6 %; Neutrophils # 3.12 10^3/uL (1.8-7.7); Neutrophils % 63.9 %; Nucleated Red Blood Cells % 0 %; Platelet Count 293 10^3/cmm (130-400); Red Blood Count 3.87 10^6/uL (4.1-5.3); White Blood Count 4.9 10^3/uL (4.0-10.0)
[2020-10-08 17:17] LABS: INR 0.93 (0.8-1.2)
[2020-10-08 17:17] LABS: Add Urine Microscopic? NO; Charge for UA Resulting for Rev
[2020-10-08 17:18] LABS: Partial Thromboplastin Time 28.3 SECONDS (23.9-36.7)
[2020-10-08 17:18] LABS: Urine Appearance Clear (CLEAR); Urine Color Straw (Yellow)
[2020-10-08 17:19] LABS: Bilirubin Urine Neg (Negative); Blood Urine Neg (Negative); Glucose Urine UA Norm (Normal); Ketones Urine Negative (Negative); Leukocyte Esterase Urine Negative (Negative); Nitrate Urine Negative (Negative); Protein Urine Neg (Negative); Specific Gravity, Urine 1.005 (1.005-1.030); Urobilinogen Urine Norm (Negative); pH Urine 6.5 (5-7)
[2020-10-08 17:23] LABS: Add RBC Morph Yes; Slide Review Slide Review Perform
[2020-10-08 17:24] LABS: Alanine Aminotransferase 13 U/L (0-41); Albumin Level 4.1 g/dL (3.5-5.2); Alkaline Phosphatase 78 IU/L (40-130); Anion Gap 12.3 (5-19); Aspartate Amino Transferase 20 U/L (0-40); Blood Urea Nitrogen 10 mg/dL (8-23); Calcium 8.6 mg/dL (8.5-10.5); Carbon Dioxide 29 mmol/L (22-29); Chloride 103 mmol/L (98-107); Dimorphic RBC 1+; Globulin 2.6 g/dL (1.3-4.6); Glucose 96 mg/dL (65-115); Macrocytosis 1+; Microcytosis 1+; Osmolality Calculated 289 mOsm/kg (285-295); Potassium 4.3 mmol/L (3.5-5.1); Sodium 140 mmol/L (136-145); Total Bilirubin 0.3 mg/dL (0.15-1.2); Total Protein 6.7 g/dL (6.6-8.7)
[2020-10-08 17:25] LABS: Anisocytosis 1+; RBC Morph Comp Yes
[2020-10-08 17:28] LABS: Amphetamines Screen Urine Negative (Negative); Barbiturates Screen Urine Negative (Negative); Benzodiazepines Screen Urine Negative (Negative); Cocaine Screen Urine Negative (Negative); Opiate Screen Urine Negative (Negative); PCP Screen Urine Negative (Negative); THC Screen Urine Negative (Negative)
--- NOTE | 2020-10-08 17:44 | PC.PHAR ---
PT STATES HE TAKES CARE OF HIS OWN MEDICATIONS-PT STATES HE HAS BEEN OFF OF HIS HYDROXYUREA FOR 2 1/2 WEEKS-PT STATES HE ONLY TAKES 0.25MG AT HS OF [facility] RX FILLED FOR 0.25-0.50 TID FILLED ON 09/23/20 5D/S-PT STATES HE ONLY TAKE ULTRAM 50MG BID-RX FILLED ON 09/23/20 15D/S FOR 50MG PO QID PRN-
--- NOTE | 2020-10-08 18:40 | ED_ITS ---
HPI - Eye Problem General: Chief complaint: Eye Problems Stated complaint: VISION ISSUES Time Seen by Provider: 10/08/20 16:23 Source: patient Mode of arrival: ambulatory Limitations: no limitations History of Present Illness: HPI Narrative: This pleasant gentleman with a history of Charcot Taylor disease presents to the emergency department with some vision issues in his left eye. He states that he was watching TV when he had a sensation like a curtain was being pulled down over his left eye and he lost about three quarters of his vision. Symptoms started up around 3 PM this afternoon. Symptoms lasted for a few minutes, and recurred once. Right the symptoms have resolved and his vision is back to normal. He denies any focal weakness more than his usual baseline. He denies any recent head trauma. He was recently diagnosed with essential thrombocytosis and was placed on hydroxyurea by the diamond sizer, Dr. Marin. Hydroxyurea was stopped about 1 week ago because his platelet counts were dropping below normal. He was concerned about his symptoms and decided to come into the emergency department for evaluation. A stroke alert was called on this patient. MD chief complaint: eye pain Onset (ago): hour(s) (2) Onset description: sudden Duration: now resolved Location: left eye Eye Symptoms: decreased vision Place: home Mechanism: none Severity: moderate Associated symptoms: Denies cough, fever(s), headache(s), nausea, neck pain, numbness, rhinorrhea, short of breath, vomiting or weakness Review of Systems General: Reports: 10 or more systems reviewed and unremarkable except in HPI and below Const: Denies: fever(s) GI: Denies: vomiting Musc: Denies: neck pain Neuro: Denies: headache(s) Physical Exam Const: COMMON NORMALS: no acute distress, average body habitus, patient oriented x3, no limitations, healthy appearing, alert and well nourished HENMT: COMMON NORMALS: normocephalic, atraumatic and moist oral mucous membranes HEAD & SCALP: normocephalic and atraumatic Eye: COMMON NORMALS: Equal, round and reactive pupils present, EOMs intact bilaterally, conjunctivae normal and no scleral icterus CONJUNCTIVA: Yes conjunctivae normal PUPIL: Yes Equal, round and reactive pupils present Neck/C-Spine: COMMON NORMALS: full ROM, supple, no meningeal signs, no JVD and No carotid bruits Chest: COMMONS NORMALS: normal inspection of the chest and normal palpation of entire chest wall Resp: COMMON NORMALS: normal respiratory effort, No retractions, No use of accessory muscles, clear to auscultation bilaterally and percussion normal AUSCULTATION: clear to auscultation bilaterally PERCUSSION: percussion normal Cardio: COMMON NORMALS: no JVD, regular rate, regular rhythm, S1 normal heart sound present, S2 normal heart sound present, No gallops present (Cardio), No clicks present (Cardio), No murmurs present (Cardio), No rub (Cardio) and Peripheral pulses 2+ throughout RATE: regular rate RHYTHM: regular rhythm HEART SOUNDS: S1 normal heart sound present and S2 normal heart sound present PERIPHERAL PULSES: Peripheral pulses 2+ throughout GI: COMMON NORMALS: Normal to inspection, nondistended, normoactive bowel sounds present, Soft to palpation, non-tender, No hepatosplenomegaly present, no masses and no bruits PALPATION: Yes Soft to palpation and Yes No hepatosplenomegaly present Extremity: COMMON NORMALS: normal to inspection, full ROM, capillary refill normal, no calf tenderness and no pedal edema Neuro: COMMON NORMALS: patient oriented x3 SENSORIUM/ORIENTATION: Yes alert MENINGEAL SIGNS: Yes no meningeal signs OTHER: NIHSS is 0 Skin: COMMON NORMALS: no rashes or lesions noted, no wounds, turgor normal, no jaundice, no petechiae and no mottling GENERAL SKIN EXAM: no rashes or lesions noted and turgor normal Course Reevaluation(s): Reevaluation #1: Discussed his lab and imaging findings with him. Negative for acute findings. Negative head CT and head and neck CTA. Discussed my conversation with the neurologist with him. We will discharge him home with no new orders, he is however to follow-up with the diamond sizer as soon as possible. Time: 18:41 Consultations: Consultation #1: Discussed his imaging findings with the neurologist, Dr. Mac. She had also done a teleneurology consult with him earlier. She advised that he be discharged home on aspirin. Time: 17:50 Vital Signs: Vital signs: Vital Signs Temperature 97.2 F L 10/08/20 16:23 Pulse Rate 67 10/08/20 18:59 Respiratory Rate 15 10/08/20 18:59 Blood Pressure 148/79 10/08/20 18:59 Pulse Oximetry 95 10/08/20 18:59 MDM - Eye Problem MDM Narrative: Medical decision making narrative: 65-year-old male with symptoms consistent with left eye amaurosis fugax. He had a negative head CT and a negative head and neck CTA. Other labs were unremarkable. He is discharged sowmya to follow-up with the diamond sizer whom he sees for essential thrombocytosis. Medical Records: Attestation: I reviewed the patient's medical records. Lab Data: Attestation: I reviewed the patient's lab results. Labs: Lab Results 10/08/20 10/08/20 10/08/20 Range/Units 16:38 16:57 16:57 WBC 4.9 (4.0-10.0) 10^3/ uL RBC 3.87 L (4.1-5.3) 10^6/u L Hgb 12.9 (11.7-16.6) g/dL Hct 37.2 L (42.0-52.0) % MCV 96.1 H (80-94) fL MCH 33.3 (28.0-34.0) pg MCHC 34.7 (30.0-36.0) g/dL RDW Not Reportable Plt Count 293 (130-400) 10^3/c mm MPV 10.0 (7.4-10.4) fL Neut % (Auto) 63.9 % Lymph % (Auto) 22.9 % [place] % (Auto) 9.6 % Eos % (Auto) 2.2 % Baso % (Auto) 0.8 % Neut # (Auto) 3.12 (1.8-7.7) 10^3/u L Lymph # (Auto) 1.1 (0.8-4.8) 10^3/u L [place] # (Auto) 0.5 (0.2-0.9) 10^3/u L Eos # (Auto) 0.1 (0.0-0.8) 10^3/u L Baso # (Auto) 0.0 (0.0-0.1) 10^3/u L Nucleated RBC % (a uto) 0 % Nucleated RBCs # 0.0 /100WBC Dimorphic RBCs 1+ H Anisocytosis 1+ H Microcytosis 1+ H Macrocytosis 1+ H PT 12.80 (12.1-14.9) SECO NDS INR 0.93 (0.8-1.2) APTT 28.3 (23.9-36.7) SECO NDS Sodium (136-145) mmol/L Potassium (3.5-5.1) mmol/L Chloride (98-107) mmol/L Carbon Dioxide (22-29) mmol/L Anion Gap (5-19) BUN (8-23) mg/dL Creatinine (0.7-1.2) mg/dL GFR Calculation (90-130) mL/min Glucose (65-115) mg/dL POC Glucose 105 (70-110) mg/dL Calculated Osmolal ity (285-295) mOsm/k g Calcium (8.5-10.5) mg/dL Total Bilirubin (0.15-1.2) mg/dL AST (0-40) U/L ALT (0-41) U/L Alkaline Phosphata se (40-130) IU/L Total Protein (6.6-8.7) g/dL Albumin (3.5-5.2) g/dL Globulin (1.3-4.6) g/dL Urine Color (Yellow) Urine Appearance (CLEAR) Urine pH (5-7) Ur Specific Gravit y (1.005-1.030) Urine Protein (Negative) Urine Glucose (UA) (Normal) Urine Ketones (Negative) Urine Blood (Negative) Urine Nitrate (Negative) Urine Bilirubin (Negative) Urine Urobilinogen (Negative) mg/dL Ur Leukocyte Dia ase (Negative) Urine Opiates Scre en (Negative) ng/mL Ur Barbiturates Sc reen (Negative) ng/mL Ur Phencyclidine S crn (Negative) ng/mL Ur Amphetamines Sc reen (Negative) ng/mL U Benzodiazepines Scrn (Negative) ng/mL Urine Cocaine Scre en (Negative) ng/mL U Marijuana (THC) Screen (Negative) ng/mL 10/08/20 10/08/20 10/08/20 Range/Units 16:57 17:12 17:12 WBC (4.0-10.0) 10^3/ uL RBC (4.1-5.3) 10^6/u L Hgb (11.7-16.6) g/dL Hct (42.0-52.0) % MCV (80-94) fL MCH (28.0-34.0) pg MCHC (30.0-36.0) g/dL RDW Plt Count (130-400) 10^3/c mm MPV (7.4-10.4) fL Neut % (Auto) % Lymph % (Auto) % [place] % (Auto) % Eos % (Auto) % Baso % (Auto) % Neut # (Auto) (1.8-7.7) 10^3/u L Lymph # (Auto) (0.8-4.8) 10^3/u L [place] # (Auto) (0.2-0.9) 10^3/u L Eos # (Auto) (0.0-0.8) 10^3/u L Baso # (Auto) (0.0-0.1) 10^3/u L Nucleated RBC % (a uto) % Nucleated RBCs # /100WBC Dimorphic RBCs Anisocytosis Microcytosis Macrocytosis PT (12.1-14.9) SECO NDS INR (0.8-1.2) APTT (23.9-36.7) SECO NDS Sodium 140 (136-145) mmol/L Potassium 4.3 (3.5-5.1) mmol/L Chloride 103 (98-107) mmol/L Carbon Dioxide 29 (22-29) mmol/L Anion Gap 12.3 (5-19) BUN 10 (8-23) mg/dL Creatinine 0.9 (0.7-1.2) mg/dL GFR Calculation 85.0 L (90-130) mL/min Glucose 96 (65-115) mg/dL POC Glucose (70-110) mg/dL Calculated Osmolal ity 289 (285-295) mOsm/k g Calcium 8.6 (8.5-10.5) mg/dL Total Bilirubin 0.3 (0.15-1.2) mg/dL AST 20 (0-40) U/L ALT 13 (0-41) U/L Alkaline Phosphata se 78 (40-130) IU/L Total Protein 6.7 (6.6-8.7) g/dL Albumin 4.1 (3.5-5.2) g/dL Globulin 2.6 (1.3-4.6) g/dL Urine Color Straw (Yellow) Urine Appearance Clear (CLEAR) Urine pH 6.5 (5-7) Ur Specific Gravit y 1.005 (1.005-1.030) Urine Protein Neg (Negative) Urine Glucose (UA) Norm (Normal) Urine Ketones Negative (Negative) Urine Blood Neg (Negative) Urine Nitrate Negative (Negative) Urine Bilirubin Neg (Negative) Urine Urobilinogen Norm (Negative) mg/dL Ur Leukocyte Dia ase Negative (Negative) Urine Opiates Scre en Negative (Negative) ng/mL Ur Barbiturates Sc reen Negative (Negative) ng/mL Ur Phencyclidine S crn Negative (Negative) ng/mL Ur Amphetamines Sc reen Negative (Negative) ng/mL U Benzodiazepines Scrn Negative (Negative) ng/mL Urine Cocaine Scre en Negative (Negative) ng/mL U Marijuana (THC) Screen Negative (Negative) ng/mL Imaging Data^: Other CT: Attestation: I personally reviewed and interpreted this imaging study as follows: Radiologist's impression: [employer] [address] [address] Scan Report Signed Patient: Billy Whitman #: [id number] : 6Acc#:[id number] Age/Sex: 65 / MADM Date: 10/08/20 Loc: [facility]/Bed: Attending Dr: Ordering Provider/Ordering MD: Antoinette Chapman MD, [facility] [place] Date of Service: 10/08/20 Procedure(s): CT angio headneck* [id number] Accession Number(s): [id number] Report Number: [id number] PROCEDURE INFORMATION: Exam: CT Angiography Head With Contrast, Arteriography Exam date and time: 10/08/2020 4:55 PM Age: 65 years old Clinical indication: Visual disturbance; Additional info: Stroke like symptoms TECHNIQUE: Imaging protocol: Computed tomography angiography of the head with contrast. Exam focused on the arteries. 3D rendering (Not supervised by radiologist): MIP and/or 3D reconstructed images were created by the technologist. Radiation optimization: All CT scans at this facility use at least one of these dose optimization techniques: automated exposure control; mA and/or kV adjustment per patient size (includes targeted exams where dose is matched to clinical indication); or iterative reconstruction. Contrast material: OMNI 350; Contrast volume: 95 ml; Contrast route: INTRAVENOUS (IV); COMPARISON: No relevant prior studies available. RADIATION DOSE METRICS: Total DLP (mGy-cm): 6.31 FINDINGS: ANTERIOR CIRCULATION: Right internal carotid artery: Unremarkable. Intracranial segment is patent with no significant stenosis. No aneurysm. Right middle cerebral artery: Unremarkable. No occlusion or significant stenosis. No aneurysm. Right anterior cerebral artery: Unremarkable. No occlusion or significant stenosis. No aneurysm. Left internal carotid artery: Unremarkable. Intracranial segment is patent with no significant stenosis. No aneurysm. Left middle cerebral artery: Unremarkable. No occlusion or significant stenosis. No aneurysm. Left anterior cerebral artery: Unremarkable. No occlusion or significant stenosis. No aneurysm. POSTERIOR CIRCULATION: Right vertebral artery: Unremarkable. No occlusion or significant stenosis. No aneurysm. Left vertebral artery: Unremarkable. No occlusion or significant stenosis. No aneurysm. Basilar artery: Unremarkable. No occlusion or significant stenosis. No aneurysm. Right posterior cerebral artery: Unremarkable. No occlusion or significant stenosis. No aneurysm. Left posterior cerebral artery: Unremarkable. No occlusion or significant stenosis. No aneurysm. Brain: No definite mass, mass effect, or midline shift. Cerebral ventricles: No ventriculomegaly. Bones/joints: Unremarkable. No acute fracture. Soft tissues: Unremarkable. IMPRESSION: No large vessel stenosis or occlusion. PROCEDURE INFORMATION: Exam: CT Angiography Neck With Contrast Exam date and time: 10/08/2020 4:55 PM Age: 65 years old Clinical indication: Visual disturbance; Additional info: Stroke like symptoms TECHNIQUE: Imaging protocol: Computed tomography angiography of the neck with contrast. 3D rendering (Not supervised by radiologist): MIP and/or 3D reconstructed images were created by the technologist. Radiation optimization: All CT scans at this facility use at least one of these dose optimization techniques: automated exposure control; mA and/or kV adjustment per patient size (includes targeted exams where dose is matched to clinical indication); or iterative reconstruction. Contrast material: OMNI 350; Contrast volume: 95 ml; Contrast route: INTRAVENOUS (IV); COMPARISON: No relevant prior studies available. RADIATION DOSE METRICS: Total DLP (mGy-cm): 6.31 FINDINGS: Right common carotid artery: No stenosis. No dissection or occlusion. Right internal carotid artery: No stenosis of the extracranial segment. No dissection or occlusion. Right external carotid artery: No occlusion or stenosis of the origin. Right vertebral artery: No stenosis. No dissection or occlusion. Left common carotid artery: No stenosis. No dissection or occlusion. Left internal carotid artery: No stenosis of the extracranial segment. No dissection or occlusion. Left external carotid artery: No occlusion or stenosis of the origin. Left vertebral artery: No stenosis. No dissection or occlusion. Other vasculature: Mild C3-C4 anterolisthesis. Straightening of natural cervical lordosis. No fractures. Bones/joints: The cervical spine demonstrates marked degenerative changes at multiple levels. Soft tissues: Normal. No significant soft tissue swelling. CT/CT angio headneck* [id number] IMPRESSION: 1. Unremarkable CT angiogram neck. No vascular occlusion. 2. No carotid artery stenosis. REFERENCES: NASCET CRITERIA. The degree of internal carotid artery stenosis is based on NASCET criteria. Normal is no stenosis. Mild is less than 50% stenosis. Moderate is 50-69% stenosis. Severe is 70% to 99% stenosis. Total occlusion is no detectable patent lumen. Radiation Dose CTDIVOL = (mGy): DLP = 2156.31~2156.31 (mGy-cm) Dictated By:Deshawn Herr Signed By:Ida Herr Date/Time:10/08/201717 DD/ 15 CT Head: Attestation: I personally reviewed and interpreted this imaging study as follows: Radiologist's impression: [employer] [address] [address] Scan Report Signed Patient: Billy Whitman #: [id number] : 6Acct#:[id number] Age/Sex: 65 / MADM Date: 10/08/20 Loc: [facility]/Bed: Attending Dr: Ordering Provider/Ordering MD: Antoinette Chapman MD, [facility] [place] Date of Service: 10/08/20 Procedure(s): CT head wo con* [id number] Accession Number(s): [id number] Report Number: [id number] PROCEDURE INFORMATION: Exam: CT Head Without Contrast Exam date and time: 10/08/2020 4:47 PM Age: 65 years old Clinical indication: Other: Vision changes; Additional info: Stroke symptoms TECHNIQUE: Imaging protocol: Computed tomography of the head without contrast. Radiation optimization: All CT scans at this facility use at least one of these dose optimization techniques: automated exposure control; mA and/or kV adjustment per patient size (includes targeted exams where dose is matched to clinical indication); or iterative reconstruction. Other technique: STROKE PROTOCOL was implemented. COMPARISON: No relevant prior studies available. RADIATION DOSE METRICS: Total DLP (mGy-cm): 927.26 FINDINGS: Brain: Normal. No hemorrhage. Unremarkable white matter. No mass effect. Cerebral ventricles: No ventriculomegaly. Bones/joints: Unremarkable. No acute fracture. Paranasal sinuses: Visualized sinuses are unremarkable. No fluid levels. Mastoid air cells: Visualized mastoid air cells are well aerated. Soft tissues: Unremarkable. CT/CT head wo con* [id number] IMPRESSION: No acute intracranial abnormality. ASSESSMENT: ASPECTS ([place] Stroke Program Early CT Score) is 10. Radiation Dose CTDIVOL = (mGy): DLP = 927.26 (mGy-cm) Dictated By:Deshawn Herr Signed By:Suhail Herrigned Date/Time:10/08/201709 DD/ 07 EKG Data^: EKG 1: Attestation: I personally reviewed and interpreted this EKG as follows: EKG interpretation date: 10/08/20 EKG interpretation time: 16:45 Prior EKG tracings: not available for review Interpretation: Sinus rhythm. Heart rate 76 bpm. Normal axis. No ST changes. Discharge Plan Discharge Patient Disposition: Home Clinical Impression: Amaurosis fugax of left eye Condition: Stable Prescriptions: Continued tramadol [Ultram] 50 mg Tablet 50 mg PO BID@1016 RF: 0 alprazolam [Xanax] 0.25 mg Tablet 0.25 mg PO BEDTIME RF: 0 aspirin 81 mg Tablet,Delayed Release (Dr/Ec) 81 mg PO QAM RF: 0 Tylenol Extra Strength 500 mg Tablet 1,000 mg PO PRN RF: 0 ibuprofen 200 mg Tablet 600 mg PO PRN RF: 0 sildenafil (pulm.hypertension) 20 mg tablet 20 - 100 mg PO PRN RF: 0 Probiotic Drink See Rx Instructions .ROUTE .COMPLEX RF: 0 Discharge Orders: Discharge ED (Routine); Ordered 10/08/20 Ordered By: Antoinette Chapman Referrals: Ish Pretty DO [Primary Care Provider] - 1-3 days Discharge Diet: Usual diet Discharge Activity: Increase activity as tolerated Patient Instructions: Transient Ischemic Attack (ED) Activity Restrictions/Additional Instructions: Return for any new or worsening symptoms. Follow-up with Dr. Marin within 3 days. Continue to take a baby aspirin once a day. Follow-up with your primary care provider within 5 days. Coding Level of Care Code ED Ase Certified Technician for Singh Villarreal
[2020-10-08 18:59] VITALS: BP 148/79; PULSE 67; RESP 15; O2SAT 95
== END 2020-10-08 19:01 | disposition home or self-care (01) ==
PROVIDERS: Emergency Provider Family Medicine; PCP Internal Medicine
DX: G45.3 Amaurosis fugax (principal); Z79.82 Long term (current) use of aspirin
CPT/HCPCS: 36416; 70450; 70496; 70498; 80053; 80306; 81003; 82962; 85025; 85610; 85730; 93005; 99284; Q9967

== ENCOUNTER 2020-10-19 06:24 | Outpatient (CLI) | payer OTHER, SELFPAY ==
[2020-10-19 13:01] LABS: Basophils % 0.5 %; Eosinophils # 0.2 10^3/uL (0.0-0.8); Eosinophils % 2.7 %; Hematocrit 37.8 % (42.0-52.0); Lymphocytes % 17.4 %; Mean Corpuscular HGB Conc 34.4 g/dL (30.0-36.0); Mean Corpuscular Hemoglobin 33.9 pg (28.0-34.0); Mean Corpuscular Volume 98.4 fL (80-94); Mean Platelet Volume 10.1 fL (7.4-10.4); Monocytes # 0.5 10^3/uL (0.2-0.9); Monocytes % 7.9 %; Neutrophils # 4.12 10^3/uL (1.8-7.7); Neutrophils % 70.8 %; Nucleated Red Blood Cells % 0 %; Platelet Count 305 10^3/cmm (130-400); Red Blood Count 3.84 10^6/uL (4.1-5.3); White Blood Count 5.8 10^3/uL (4.0-10.0)
[2020-10-19 13:28] LABS: Alanine Aminotransferase 21 U/L (0-41); Albumin Level 3.9 g/dL (3.5-5.2); Alkaline Phosphatase 83 IU/L (40-130); Anion Gap 10.2 (5-19); Aspartate Amino Transferase 16 U/L (0-40); Blood Urea Nitrogen 9 mg/dL (8-23); Calcium 8.3 mg/dL (8.5-10.5); Carbon Dioxide 29 mmol/L (22-29); Chloride 102 mmol/L (98-107); Globulin 2.5 g/dL (1.3-4.6); Glucose 116 mg/dL (65-115); Homocysteine 14.29; Lactate Dehydrogenase 154 U/L (135-225); Osmolality Calculated 284 mOsm/kg (285-295); Potassium 4.2 mmol/L (3.5-5.1); Sodium 137 mmol/L (136-145); Total Bilirubin 0.3 mg/dL (0.15-1.2); Total Protein 6.4 g/dL (6.6-8.7)
[2020-10-19 13:39] LABS: Vitamin B12 700 pg/mL (232-1245)
[2020-10-19 15:18] LABS: Add RBC Morph Yes
[2020-10-19 15:19] LABS: Dimorphic RBC TRACE; RBC Morph Comp No; Slide Review Slide Review Perform
[2020-10-19 15:20] LABS: Anisocytosis 1+; Ovalocytes 1+; Pathology Refferal No; Poikilocytosis Trace; Tear Drop Cells 1+
--- NOTE | 2020-10-19 20:05 | ONC FU_ITS ---
Dr. Marin Patient Follow-Up Note Patient: Manas Whitman Unit #: [id number]: 1955 Dicatated By: Ish Marin M.D.Date of Visit:October 19, 2020 Onc Med Follow-up/Prog Note Chief Complaint: Thrombocythemia. 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 In January 2020 he had been in to see Dr. Pretty for a yearly checkup. His CBC at that time showed a mildly elevated platelet count at 653,000. The remainder of his CBC included a normal hemoglobin at 15.4 g with hematocrit 46%. The white blood cell count was 10,200 with a differential showing 84% granulocytes, 10% lymphocytes, and 4% monocytes. Comprehensive metabolic profile at that time was unremarkable. His repeat CBC on 03/07/2020 showed similar findings with hemoglobin 15.9 g, white blood cell count 9600, and platelet count 646,000 and a subsequent study from 04/18/2020 also showed similar results with hemoglobin of 15.8 g, white blood cell count 8300, and platelet count 776,000. I had seen him initially on 05/30/2020. His CBC showed similar findings with hemoglobin 15.4 g 10 hematocrit 46.3%, white blood cell count 7200, and platelet count 622,000. His blood smear showed numerous large platelet forms, including some giant platelets. His LDH was at the upper limit of normal at 225 U/L. On his molecular analysis the JAK2 (V617F) mutation was detected. He underwent bone marrow aspiration/biopsy on 06/30/2020. The cellularity was normal, averaging 30 to 50%. Megakaryocytic hyperplasia was noted with several bizarre megakaryocyte forms and megakaryocyte clusters identified. There was no significant reticulin fibrosis seen on the reticulin stain. Iron stores appeared adequate and there were no ring sideroblasts identified. Rare benign-appearing lymphoid aggregates were noted on the core biopsy. The standard chromosome analysis was normal. Overall, the findings were consistent with essential thrombocythemia. With age greater than 60 and with a JAK2 (V617F) mutation he met NCCN criteria for high risk disease. As of his follow-up visit on 07/15/2020 he began hydroxyurea at 500 mg daily along with aspirin prophylaxis. His medical history is significant for known Vmhkmvw-Lqwve-Mgftg disease with associated peripheral neuropathy. His other medical illnesses include degenerative disease of the spine, migraine headaches, and chronic anxiety. He smokes 3 to 4 cigars per week. He had smoked cigarettes in the past, but he quit 40 years ago. INTERIM HISTORY: During follow-up his blood counts had initially remained stable on 500 mg of hydroxyurea daily. With the dosage increased to 500 mg twice daily, then developed mild anemia and neutropenia. As of 09/20/2020 his hemoglobin was down to 11.8 g with white blood cell count 2300 and platelet count 237,000, and at that point his hydroxyurea was put on hold. On 10/09/2019 when he presented to the emergency room with acute visual loss in his left eye. He described the episode as if a shade was pulled down over his left eye. It lasted for about 5 minutes. The episode was felt to be consistent with amaurosis fugax. His CBC at that time showed hemoglobin back up to 12.9 g with white blood cell count 4900 and platelet count 293,000. His head/neck CTA was unrevealing. At that time he had not been taking his aspirin on a consistent basis, and he is now taking 81 mg every day. He is undergoing additional outpatient evaluation under the direction of Dr. Pretty. He has been feeling good generally. He says his energy is better now and he has back to his normal activity level. His ECOG score is 1. He has good appetite. He has no fever or night sweats. He has sinus drainage off and on. He has had no mouth sores. He has no shortness of breath, cough, or chest pain. He currently has no GI or complaints. He does complain that he hurts all the time, but that is chronic. He does not complain of headache. He has had no other focal neurologic symptoms. Medications: Ibuprofen Capsule Oral PRN, Sildenafil Citrate 1 Tablet (of 20 mg) Oral daily, traMADol HCl 1 Tablet (of 50 mg) Oral b.i.d., Tylenol Tablet Oral PRN, Xanax 1 Tablet (of 0.25 mg) Oral daily Allergies: Bee Venom, Morphine Sulfate, and Penicillins. Vital Signs: Performed on October 19, 2020 14:34 Height - 73.00 in Weight - 193.6 lbs (LOW) BSA - 2.12 sq.m BMI - 25.54 Temperature - 98.9 F (HIGH) Pulse - 74 /min Respiration - 18 /min BP - 158/93 mm(hg) (HIGH) O2 Sat - 97 % Pain - 0 Fatigue - 0 Physical Examination: Constitutional - He looks good generally, Eyes - Sclerae nonicteric. Conjunctivae clear, ENMT - No lesions noted in the oral cavity, Hematologic/Lymphatic - No cervical, clavicular, or axillary adenopathy, Respiratory - Lungs are clear with good air movement bilaterally, Cardiovascular - Heart rhythm is regular. There is no murmur, gallop, or rub noted. There is no carotid bruit noted, Abdomen - Soft. Liver and spleen are not enlarged. There is no abdominal mass or ascites noted and there is no inguinal adenopathy, Extremities - Slight edema. Pedal pulses are palpable bilaterally, Neurologic - No focal neurologic deficits noted. Lab/Imaging: Test performed on October 19, 2020 12:30 Homocysteine 14.29 umol/L LDH (Total) 154 U/L Sodium 137 mmol/L Vitamin B12 700 pg/mL Potassium 4.2 mmol/L Chloride 102 mmol/L CO2 29 mmol/L Anion Gap 10.2 BUN 9 mg/dL Creatinine 0.9 mg/dL Cr Clearance (Est) 103.00 mL/min eGFR 85.0 mL/min Glucose 116 mg/dL Osmolality - Calculated 284 mOsm/kg Calcium 8.3 mg/dL Protein, Total 6.4 g/dL Albumin 3.9 g/dL Globulin 2.5 g/dL Bilirubin, Total 0.3 mg/dL ALT (SGPT) 21 U/L AST (SGOT) 16 U/L Alkaline Phosphatase 83 IU/L WBC 5.8 10 3/uL RBC 3.84 10 6/uL Anisocytosis 1+ HGB 13.0 g/dL HCT 37.8 % MCV 98.4 fL MCH 33.9 pg Poikilocytosis Trace MCHC 34.4 g/dL Platelet Count 305 10 3/cmm MPV 10.1 fL Neutrophils 4.12 10 3/uL Lymphocytes 1.0 10 3/uL Monocytes 0.5 10 3/uL Ovalocytes 1+ Eosinophils 0.2 10 3/uL Basophils 0.0 10 3/uL Neutrophil % 70.8 % Lymphocyte % 17.4 % Monocyte % 7.9 % Eosinophil % 2.7 % Basophils % 0.5 % Tear Drop Cells 1+ NRBC % 0 % CBC Slide Review Slide Review Perform SLIDE REVIEW AGREES WITH AUTOMATED RESULT Problem List: 1. 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 2. On 10/08/2020 he had an episode of amaurosis fugax involving the left eye. The underlying cause/source has not been determined. 3. He has known Npoxcxp-Tcxdx-Gonic disease with peripheral neuropathy. 4. Degenerative disease of the spine. 5. Chronic migraine. 6. Chronic anxiety. Problems Addressed with this Encounter and Plan: Patient with essential thrombocythemia. Molecular analysis was positive for the JAK2 (V617F) mutation. His bone marrow aspiration/biopsy showed no significant reticulin fibrosis. With his age greater than 60 and with the molecular analysis positive for the JAK2 mutation, he was in the high risk category. Per NCCN guidelines, he was recommended to have treatment with hydroxyurea together with aspirin prophylaxis. As of 07/15/2019 when he began treatment with hydroxyurea 500 mg daily together with aspirin 81 mg daily. He initially required an increase in the dosage to 500 mg twice daily. However, as of 09/21/2020 his treatment was put on hold due to mild anemia and moderately severe neutropenia. His blood counts have subsequently recovered. In the meantime, he had an episode of amaurosis fugax involving the left eye. The underlying cause/source has not been determined. At the time of the episode his platelet count was normal and he was not taking the hydroxyurea. He also had not been taking his aspirin on a consistent basis. With his blood counts back up to normal, I am going to have him restart the hydroxyurea at 500 mg on Mondays, Wednesdays, and Fridays. His blood counts will be monitored every 2 weeks. He will continue aspirin 81 mg daily, and he indicates that he will take it consistently. He will be scheduled for a follow-up visit in 3 months. Signed By: Ish Marin M.D. <<Signature on File>>
[2020-10-25 21:23] LABS: Methylmalonic Acid 134 nmol/L (87-318)
== END 2020-10-19 06:25 | disposition home or self-care (01) ==
LOC: ONCMED 06:26
PROVIDERS: PCP Internal Medicine; Visit Provider Internal Medicine Medical Oncology
DX: D47.3 Essential (hemorrhagic) thrombocythemia (principal); G45.3 Amaurosis fugax; G60.0 Hereditary motor and sensory neuropathy; M47.9 Spondylosis, unspecified; G43.919 Migraine, unspecified, intractable, without status migrainosus; F41.9 Anxiety disorder, unspecified; Z79.899 Other long term (current) drug therapy
CPT/HCPCS: 36415; 80053; 82607; 83090; 83615; 83921; 85025; 99214

== ENCOUNTER 2020-11-03 06:31 | Outpatient (CLI) | payer OTHER, SELFPAY ==
[2020-11-03 10:16] LABS: Basophils % 0.6 %; Eosinophils # 0.2 10^3/uL (0.0-0.8); Eosinophils % 2.4 %; Hematocrit 36.7 % (42.0-52.0); Hemoglobin 12.6 g/dL (11.7-16.6); Lymphocytes # 0.8 10^3/uL (0.8-4.8); Lymphocytes % 11.9 %; Mean Corpuscular HGB Conc 34.3 g/dL (30.0-36.0); Mean Corpuscular Hemoglobin 34.8 pg (28.0-34.0); Mean Corpuscular Volume 101.4 fL (80-94); Mean Platelet Volume 9.9 fL (7.4-10.4); Monocytes # 0.5 10^3/uL (0.2-0.9); Monocytes % 6.7 %; Neutrophils % 78.1 %; Nucleated Red Blood Cells % 0 %; Platelet Count 268 10^3/cmm (130-400); Red Blood Count 3.62 10^6/uL (4.1-5.3); Red Cell Distribution Width 19.5 % (12.1-15.1)
== END 2020-11-03 06:32 | disposition home or self-care (01) ==
LOC: ONCMED 06:32
PROVIDERS: PCP Internal Medicine; Visit Provider Internal Medicine Medical Oncology
DX: D47.3 Essential (hemorrhagic) thrombocythemia (principal)
CPT/HCPCS: 36415; 85025

== ENCOUNTER 2020-11-29 07:30 | Outpatient (CLI) | payer OTHER, SELFPAY ==
--- NOTE | 2020-11-29 07:41 | USCV_ITS ---
Manas Whitman Age: 65 Gender: M : 1955 Exam Date: 11/29/2020 07:49 Ordering Phys: Ish Pretty DO Technologist: Dara Rubio [place] [facility] [place]: TIA BP: 140 / 78 HR: 55 Rhythm: Sinus Technical Quality: Good MEASUREMENTS (Male / Female) Normal Values 2D ECHO LV Diastolic Diameter PLAX 5.5 cm 4.2 - 5.9 / 3.9 - 5.3 cm LV Systolic Diameter PLAX 3.7 cm LV Chamber Size 5.1 cm IVS Diastolic Thickness 1.2 cm 0.6 - 1.0 / 0.6 - 0.9 cm IVS Systolic Thickness 1.6 cm LVPW Diastolic Thickness 1.3 cm 0.6 - 1.0 / 0.6 - 0.9 cm LVPW Systolic Thickness 1.3 cm RV Chamber Size 2.9 cm LVOT Diameter 2.0 cm LV Ejection Fraction 2D Teich 59.6 % LV Ejection Fraction MOD 2C 64.3 % LV Ejection Fraction 2C AL 69.0 % LA Diameter 3.4 cm LA Width 4.3 cm LA Height 5.1 cm RA Width 2.6 cm RA Height 5.2 cm Aorta at Sinotubular Diameter 3.8 cm M-MODE LV Diastolic Diameter MM 5.4 cm 4.2 - 5.9 / 3.9 - 5.3 cm LV Systolic Diameter MM 4.0 cm LV Ejection Fraction MM Teich 51.1 % IVS Diastolic Thickness MM 1.3 cm 0.6 - 1.0 / 0.6 - 0.9 cm IVS Systolic Thickness MM 0.8 cm LVPW Diastolic Thickness MM 0.9 cm 0.6 - 1.0 / 0.6 - 0.9 cm LVPW Systolic Thickness MM 1.3 cm RV Diastolic Diameter MM 2.5 cm Aortic Annulus Diameter 3.6 cm LA Ao Ratio MM 1.0 MV E Point Septal Separation 0.5 cm DOPPLER AV Peak Velocity 119.0 cm/s LVOT Peak Velocity 93.0 cm/s AV Area Cont Eq vti 2.7 cm squared AV Area Cont Eq pk 2.5 cm squared MV Area PHT 3.1 cm squared Mitral E to A Ratio 0.9 MV E' Velocity 36.5 cm/s Mitral E to MV E' Ratio 6.1 Mitral E to LV E' Lateral Ratio 5.8 Mitral E to LV E' Septal Ratio 6.6 TR Peak Velocity 234.9 cm/s TR Peak Gradient 22.1 mmHg TR Mean Velocity 200.5 cm/s TR Mean Gradient 17.7 mmHg TR Velocity Time Integral 73.5 cm TV Peak E Velocity 61.0 cm/s Right Atrial Pressure 3.0 mmHg Pulmonary Artery Systolic Pressu 25.1 mmHg PV Peak Velocity 90.0 cm/s FINDINGS Left Ventricle Normal left ventricular size. LV systolic function is normal with EF of 50-55%. No regional wall motion abnormalities. Normal diastolic filling pattern. Right Ventricle The right ventricle is normal in size and function. Right Atrium The right atrium is normal in size. Left Atrium The left atrium is normal in size. Mitral Valve Structurally normal mitral valve without significant stenosis or prolapse. There is mild mitral regurgitation. Aortic Valve Structurally normal aortic valve without significant sclerosis or stenosis. There is mild aortic regurgitation. Tricuspid Valve Structurally normal tricuspid valve without significant stenosis or regurgitation. Insufficient TR jet to calculate RVSP Pulmonic Valve Structurally normal pulmonic valve without significant stenosis. There is trace pulmonic regurgitation. Pericardium Normal pericardium without effusion. Aorta Ascending aorta is dilated CONCLUSIONS LV systolic function is normal with EF of 50-55%. Normal diastolic function Mild mitral regurgitation Mild aortic regurgitation Trace pulmonic regurgitation Ascending aorta appears to be dilated. Recommend CT scan to assess the size accurately No comparison studies are available Anton Montejo MD (Electronically Signed) Final Date: 02 December 2020 19:00 S
== END 2020-11-29 07:31 | disposition home or self-care (01) ==
LOC: RAD 07:33
PROVIDERS: PCP Internal Medicine; Visit Provider Internal Medicine
DX: G45.9 Transient cerebral ischemic attack, unspecified (principal); I08.0 Rheumatic disorders of both mitral and aortic valves
CPT/HCPCS: 93306

== ENCOUNTER 2021-01-04 07:45 | Outpatient (CLI) | payer MEDICARE, SELFPAY ==
--- NOTE | 2021-01-04 08:01 | CT_ITS ---
WS: [id number] CTA THORACIC AORTA WITH AND WITHOUT CONTRAST. HISTORY: ENLARGED AORTA TECHNIQUE: CT imaging of the thorax is performed with and without contrast. After noncontrast imaging is performed, CT angiogram is performed during injection of Omnipaque 350; 95 mL IV.. Sagittal and c oronal reconstructions, sagittal and coronal MIP imaging is submitted. All CT scans at [facility] use at least one of these dose optimization techniques: automated exposure control; mA and/o r kV adjustment per patient size (includes targeted exams where dose is matched to clinical indicatio n); or iterative reconstruction. DLP: 1437.05 mGycm COMPARISON: None available. Normal size thoracic aorta. No aneurysm or dissection. Maximum diameter of the ascending aorta is 3.2 cm. Descending aorta at the bartolo is 2.8 cm. No dissection or significant amount of calcified plaqu e. Origins of the great vessels are normal. No periaortic hematoma. Small mediastinal and hilar lymph nodes. Heart is normal size. No RIGHT heart strain. No pulmonary ma ss or pneumonia. Small esophageal hernia. Very mild hyperplasia of the adrenal glands. Straightening of the normal thoracic kyphosis. Mild S-shaped curvature thoracic and lumbar spine with advancing degenerative changes in the L1 vertebral body of sclerosis. CT/CT angio chest 35839 IMPRESSION: 1. Normal size thoracic aorta. No aneurysm or dissection. 2. No adenopathy or pulmonary nodule. 3. Small hiatal hernia.
[2021-01-04] MEDS: iohexol 350 mg/mL 100 mL Btl IV (08:55)
[2021-01-04 10:21] LABS: Blood Urea Nitrogen 7 mg/dL (8-23); Glomerular Filtration Rate 84.7 mL/min (90-130)
== END 2021-01-04 07:46 | disposition home or self-care (01) ==
PROVIDERS: PCP Internal Medicine; Visit Provider Internal Medicine
DX: I77.89 Other specified disorders of arteries and arterioles (principal); K44.9 Diaphragmatic hernia without obstruction or gangrene
CPT/HCPCS: 71275; 82565; 84520; Q9967

== ENCOUNTER 2021-01-23 09:44 | Outpatient (CLI) | payer MEDICARE, SELFPAY ==
[2021-01-23 10:11] LABS: Basophils % 0.6 %; Eosinophils # 0.2 10^3/uL (0.0-0.8); Eosinophils % 3.7 %; Hematocrit 43.5 % (42.0-52.0); Hemoglobin 14.3 g/dL (11.7-16.6); Lymphocytes # 0.8 10^3/uL (0.8-4.8); Lymphocytes % 16.2 %; Mean Corpuscular HGB Conc 32.9 g/dL (30.0-36.0); Mean Corpuscular Hemoglobin 33.4 pg (28.0-34.0); Mean Corpuscular Volume 101.6 fL (80-94); Mean Platelet Volume 10.1 fL (7.4-10.4); Monocytes # 0.3 10^3/uL (0.2-0.9); Monocytes % 6.2 %; Neutrophils # 3.75 10^3/uL (1.8-7.7); Neutrophils % 73.1 %; Nucleated Red Blood Cells % 0 %; Platelet Count 281 10^3/cmm (130-400); Red Blood Count 4.28 10^6/uL (4.1-5.3); Red Cell Distribution Width 12.4 % (12.1-15.1); White Blood Count 5.1 10^3/uL (4.0-10.0)
== END 2021-01-23 09:45 | disposition home or self-care (01) ==
LOC: ONCMED 09:49
PROVIDERS: PCP Internal Medicine; Visit Provider Internal Medicine Medical Oncology
DX: D47.3 Essential (hemorrhagic) thrombocythemia (principal)
CPT/HCPCS: 85025

== ENCOUNTER 2021-01-25 06:18 | Outpatient (CLI) | payer MEDICARE, SELFPAY ==
--- NOTE | 2021-01-26 19:00 | ONC FU_ITS ---
Dr. Marin Patient Follow-Up Note Patient: Manas Whitman Unit #: [id number]: 1955 Dicatated By: Ish Marin M.D.Date of Visit:Jan 25, 2021 Onc Med Follow-up/Prog Note Chief Complaint: Thrombocythemia. 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 In January 2020 he had been in to see Dr. Pretty for a yearly checkup. His CBC at that time showed a mildly elevated platelet count at 653,000. The remainder of his CBC included a normal hemoglobin at 15.4 g with hematocrit 46%. The white blood cell count was 10,200 with a differential showing 84% granulocytes, 10% lymphocytes, and 4% monocytes. Comprehensive metabolic profile at that time was unremarkable. His repeat CBC on 03/07/2020 showed similar findings with hemoglobin 15.9 g, white blood cell count 9600, and platelet count 646,000 and a subsequent study from 04/18/2020 also showed similar results with hemoglobin of 15.8 g, white blood cell count 8300, and platelet count 776,000. I had seen him initially on 05/30/2020. His CBC showed similar findings with hemoglobin 15.4 g 10 hematocrit 46.3%, white blood cell count 7200, and platelet count 622,000. His blood smear showed numerous large platelet forms, including some giant platelets. His LDH was at the upper limit of normal at 225 U/L. On his molecular analysis the JAK2 (V617F) mutation was detected. He underwent bone marrow aspiration/biopsy on 06/30/2020. The cellularity was normal, averaging 30 to 50%. Megakaryocytic hyperplasia was noted with several bizarre megakaryocyte forms and megakaryocyte clusters identified. There was no significant reticulin fibrosis seen on the reticulin stain. Iron stores appeared adequate and there were no ring sideroblasts identified. Rare benign-appearing lymphoid aggregates were noted on the core biopsy. The standard chromosome analysis was normal. Overall, the findings were consistent with essential thrombocythemia. With age greater than 60 and with a JAK2 (V617F) mutation he met NCCN criteria for high risk disease. As of his follow-up visit on 07/15/2020 he began hydroxyurea at 500 mg daily along with aspirin prophylaxis. His medical history is significant for known Nsojgig-Dqbvq-Ohhxr disease with associated peripheral neuropathy. His other medical illnesses include degenerative disease of the spine, migraine headaches, and chronic anxiety. He smokes 3 to 4 cigars per week. He had smoked cigarettes in the past, but he quit 40 years ago. INTERIM HISTORY: During follow-up his blood counts had initially remained stable on 500 mg of hydroxyurea daily. With the dosage increased to 500 mg twice daily, then developed mild anemia and neutropenia. As of 09/20/2020 his hemoglobin was down to 11.8 g with white blood cell count 2300 and platelet count 237,000, and at that point his hydroxyurea was put on hold. On 10/09/2019 when he presented to the emergency room with acute visual loss in his left eye. He described the episode as if a shade was pulled down over his left eye. It lasted for about 5 minutes. The episode was felt to be consistent with amaurosis fugax. His CBC at that time showed hemoglobin back up to 12.9 g with white blood cell count 4900 and platelet count 293,000. His head/neck CTA was unrevealing. At that time he had not been taking his aspirin on a consistent basis, and he is now taking 81 mg every day. His further outpatient evaluation under the direction of Dr. Pretty was unrevealing. As of his follow-up visit on 10/19/2020 he restarted hydroxyurea at 500 mg on Mondays, Wednesdays, and Fridays. The dosage was subsequently further decreased to 500 mg on Mondays and . He has been feeling good generally. He has good energy, and he has normal activity. ECOG score is 0. His appetite is good. He has no fever or night sweats. He has had no mouth sores. He has no shortness of breath, cough, or chest pain. He has heartburn occasionally. His bowels tend to be a little loose. He has no other GI or complaints. He has some chronic pain associated with his CMT. He does not complain of headache or dizziness, and he has not had any focal neurologic symptoms. Medications: Ibuprofen Capsule Oral PRN, Sildenafil Citrate 1 Tablet (of 20 mg) Oral daily, traMADol HCl 1 Tablet (of 50 mg) Oral b.i.d., Tylenol Tablet Oral PRN, Xanax 1 Tablet (of 0.25 mg) Oral daily Allergies: Bee Venom, Morphine Sulfate, and Penicillins. Vital Signs: Performed on Jan 25, 2021 15:37 Height - 73.00 in Weight - 198.2 lbs (HIGH) BSA - 2.14 sq.m BMI - 26.15 Temperature - 99.6 F (HIGH) Pulse - 69 /min Respiration - 18 /min BP - 168/89 mm(hg) (HIGH) O2 Sat - 97 % Pain - 0 Fatigue - 0 Physical Examination: Constitutional - He looks good generally, Eyes - Sclerae nonicteric. Conjunctivae clear, ENMT - No lesions noted in the oral cavity, Hematologic/Lymphatic - No cervical, clavicular, or axillary adenopathy, Respiratory - Lungs are clear with good air movement bilaterally, Cardiovascular - Heart rhythm is regular. There is no murmur, gallop, or rub noted. There is no carotid bruit noted, Abdomen - Soft. Liver and spleen are not enlarged. There is no abdominal mass or ascites noted and there is no inguinal adenopathy, Extremities - Slight edema, Neurologic - No focal neurologic deficits noted. Lab/Imaging: CBC shows hemoglobin 14.3 g, white blood cell count 5100, and platelet count 281,000. Problem List: 1. 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 2. On 10/08/2020 he had an episode of amaurosis fugax involving the left eye. The underlying cause/source has not been determined. 3. He has known Nvttwzw-Pdmwa-Agmyb disease with peripheral neuropathy. 4. Degenerative disease of the spine. 5. Chronic migraine. 6. Chronic anxiety. Problems Addressed with this Encounter and Plan: Patient with essential thrombocythemia. Molecular analysis was positive for the JAK2 (V617F) mutation. His bone marrow aspiration/biopsy showed no significant reticulin fibrosis. With his age greater than 60 and with the molecular analysis positive for the JAK2 mutation, he was in the high risk category. Per NCCN guidelines, he was recommended to have treatment with hydroxyurea together with aspirin prophylaxis. As of 07/15/2019 when he began treatment with hydroxyurea 500 mg daily together with aspirin 81 mg daily. He initially required an increase in the dosage to 500 mg twice daily. However, as of 09/21/2020 his treatment was put on hold due to mild anemia and moderately severe neutropenia. His blood counts have subsequently recovered. In the meantime, he had an episode of amaurosis fugax involving the left eye. The underlying cause/source has not been determined. At the time of the episode his platelet count was normal and he was not taking the hydroxyurea. He also had not been taking his aspirin on a consistent basis. As of his follow-up visit on 10/19/2020 his blood counts were back to normal and he restarted hydroxyurea at 500 mg on Mondays, Wednesdays, and Fridays. The dosage was subsequently further decreased to 500 mg on Mondays and . He has since then been tolerating the treatment very well, and he appears to be doing very well clinically. He will continue hydroxyurea at the same dosage. His blood count will be rechecked in 3 months. I will see him again in 6 months. Signed By: Ish Marin M.D. <<Signature on File>>
== END 2021-01-25 06:19 | disposition home or self-care (01) ==
PROVIDERS: PCP Internal Medicine; Visit Provider Internal Medicine Medical Oncology
DX: D47.3 Essential (hemorrhagic) thrombocythemia (principal); G60.0 Hereditary motor and sensory neuropathy; M47.9 Spondylosis, unspecified; G43.909 Migraine, unspecified, not intractable, without status migrainosus; F41.9 Anxiety disorder, unspecified; Z79.899 Other long term (current) drug therapy
CPT/HCPCS: 99214

== ENCOUNTER 2021-04-28 09:59 | Outpatient (CLI) | payer MEDICARE, SELFPAY ==
[2021-04-28 11:25] LABS: Basophils # 0.1 10^3/uL (0.0-0.1); Basophils % 1.1 %; Eosinophils # 0.2 10^3/uL (0.0-0.8); Eosinophils % 4.1 %; Hemoglobin 14.5 g/dL (11.7-16.6); Lymphocytes # 0.8 10^3/uL (0.8-4.8); Lymphocytes % 14.4 %; Mean Corpuscular HGB Conc 33.7 g/dL (30.0-36.0); Mean Corpuscular Hemoglobin 33.3 pg (28.0-34.0); Mean Corpuscular Volume 98.9 fl (80-94); Mean Platelet Volume 10.2 fL (7.4-10.4); Monocytes # 0.4 10^3/uL (0.2-0.9); Monocytes % 6.9 %; Neutrophils # 4.13 10^3/uL (1.8-7.7); Neutrophils % 73.1 %; Nucleated Red Blood Cells % 0 %; Platelet Count 370 10^3/cmm (130-400); Red Blood Count 4.35 10^6/uL (4.1-5.3); Red Cell Distribution Width 13.5 % (12.1-15.1); White Blood Count 5.6 10^3/uL (4.0-10.0)
== END 2021-04-28 10:00 | disposition home or self-care (01) ==
LOC: ONCMED 10:01
PROVIDERS: PCP Internal Medicine; Visit Provider Internal Medicine Medical Oncology
DX: D47.3 Essential (hemorrhagic) thrombocythemia (principal)
CPT/HCPCS: 36415; 85025

== ENCOUNTER 2021-07-31 10:49 | Outpatient (CLI) | payer MEDICARE, SELFPAY ==
[2021-07-31 11:33] LABS: Basophils # 0.1 10^3/uL (0.0-0.1); Basophils % 0.8 %; Eosinophils # 0.3 10^3/uL (0.0-0.8); Eosinophils % 4.3 %; Hematocrit 46.6 % (42.0-52.0); Hemoglobin 15.4 g/dL (11.7-16.6); Lymphocytes # 0.9 10^3/uL (0.8-4.8); Lymphocytes % 14.7 %; Mean Corpuscular Hemoglobin 31.8 pg (28.0-34.0); Mean Corpuscular Volume 96.3 fl (80-94); Mean Platelet Volume 11.1 fL (7.4-10.4); Monocytes # 0.4 10^3/uL (0.2-0.9); Monocytes % 6.2 %; Neutrophils # 4.61 10^3/uL (1.8-7.7); Neutrophils % 73.5 %; Nucleated Red Blood Cells % 0 %; Platelet Count 318 10^3/cmm (130-400); Red Blood Count 4.84 10^6/uL (4.1-5.3); Red Cell Distribution Width 13.3 % (12.1-15.1); White Blood Count 6.3 10^3/uL (4.0-10.0)
[2021-07-31 11:53] LABS: Alanine Aminotransferase 21 U/L (0-41); Albumin Level 3.8 g/dL (3.5-5.2); Alkaline Phosphatase 76 IU/L (40-130); Blood Urea Nitrogen 11 mg/dL (8-23); Carbon Dioxide 22 mmol/L (22-29); Chloride 101 mmol/L (98-107); Globulin 3.2 g/dL (1.3-4.6); Glucose 116 mg/dL (65-115); Osmolality Calculated 278 mOsm/kg (285-295); Sodium 134 mmol/L (136-145); Total Bilirubin 0.3 mg/dL (0.15-1.2)
[2021-07-31 11:57] LABS: Aspartate Amino Transferase 17 U/L (0-40); Lactate Dehydrogenase 207 U/L (135-225)
== END 2021-07-31 10:50 | disposition home or self-care (01) ==
PROVIDERS: PCP Internal Medicine; Visit Provider Internal Medicine Medical Oncology
DX: D75.839 Thrombocytosis, unspecified (principal)
CPT/HCPCS: 36415; 80053; 83615; 85025

== ENCOUNTER 2021-08-02 12:06 | Outpatient (CLI) | payer MEDICARE, SELFPAY ==
--- NOTE | 2021-08-02 16:53 | ONC FU_ITS ---
Dr. Marin Patient Follow-Up Note Patient: Manas Whitman Unit #: [id number]: 1955 Dicatated By: Ish Marin M.D.Date of Visit:Aug 02, 2021 Onc Med Follow-up/Prog Note Chief Complaint: Thrombocythemia. 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 In January 2020 he had been in to see Dr. Pretty for a yearly checkup. His CBC at that time showed a mildly elevated platelet count at 653,000. The remainder of his CBC included a normal hemoglobin at 15.4 g with hematocrit 46%. The white blood cell count was 10,200 with a differential showing 84% granulocytes, 10% lymphocytes, and 4% monocytes. Comprehensive metabolic profile at that time was unremarkable. His repeat CBC on 03/07/2020 showed similar findings with hemoglobin 15.9 g, white blood cell count 9600, and platelet count 646,000 and a subsequent study from 04/18/2020 also showed similar results with hemoglobin of 15.8 g, white blood cell count 8300, and platelet count 776,000. I had seen him initially on 05/30/2020. His CBC showed similar findings with hemoglobin 15.4 g 10 hematocrit 46.3%, white blood cell count 7200, and platelet count 622,000. His blood smear showed numerous large platelet forms, including some giant platelets. His LDH was at the upper limit of normal at 225 U/L. On his molecular analysis the JAK2 (V617F) mutation was detected. He underwent bone marrow aspiration/biopsy on 06/30/2020. The cellularity was normal, averaging 30 to 50%. Megakaryocytic hyperplasia was noted with several bizarre megakaryocyte forms and megakaryocyte clusters identified. There was no significant reticulin fibrosis seen on the reticulin stain. Iron stores appeared adequate and there were no ring sideroblasts identified. Rare benign-appearing lymphoid aggregates were noted on the core biopsy. The standard chromosome analysis was normal. Overall, the findings were consistent with essential thrombocythemia. With age greater than 60 and with a JAK2 (V617F) mutation he met NCCN criteria for high risk disease. As of his follow-up visit on 07/15/2020 he began hydroxyurea at 500 mg daily along with aspirin prophylaxis. His medical history is significant for known Akwrnwg-Roqwk-Ncsqd disease with associated peripheral neuropathy. His other medical illnesses include degenerative disease of the spine, migraine headaches, and chronic anxiety. He smokes 3 to 4 cigars per week. He had smoked cigarettes in the past, but he quit 40 years ago. INTERIM HISTORY: During follow-up his blood counts had initially remained stable on 500 mg of hydroxyurea daily. With the dosage increased to 500 mg twice daily, then developed mild anemia and neutropenia. As of 09/20/2020 his hemoglobin was down to 11.8 g with white blood cell count 2300 and platelet count 237,000, and at that point his hydroxyurea was put on hold. On 10/09/2019 when he presented to the emergency room with acute visual loss in his left eye. He described the episode as if a shade was pulled down over his left eye. It lasted for about 5 minutes. The episode was felt to be consistent with amaurosis fugax. His CBC at that time showed hemoglobin back up to 12.9 g with white blood cell count 4900 and platelet count 293,000. His head/neck CTA was unrevealing. At that time he had not been taking his aspirin on a consistent basis, and he then began taking 81 mg every day. His further outpatient evaluation under the direction of Dr. Pretty was unrevealing. In October 2020 he restarted hydroxyurea at 500 mg on Mondays, Wednesdays, and Fridays. The dosage was then further decreased to 500 mg on Mondays and . He is seen for a follow-up visit. He has been feeling good generally. He has good energy and he has normal activity. ECOG score is 0. His appetite has been good. He has no fever or night sweats. He has not had sore mouth or throat. He does not complain of cough, he has not been having shortness of breath or chest pain. He has no GI/ complaints other than occasional heartburn and very occasional diarrhea. He recently hurt his left knee. He has no other joint or bone pain. He does not complain of headache or dizziness. His neuropathy is the same. Medications: Hydroxyurea Tablet Oral Take as Directed, Ibuprofen Capsule Oral PRN, Sildenafil Citrate 1 Tablet (of 20 mg) Oral daily PRN, traMADol HCl 1 Tablet (of 50 mg) Oral b.i.d., Tylenol Tablet Oral PRN, Xanax 1 Tablet (of 0.25 mg) Oral daily Allergies: Bee Venom, Morphine Sulfate, and Penicillins. Vital Signs: Performed on Aug 02, 2021 13:01 Height - 73.00 in Weight - 200.2 lbs (HIGH) BSA - 2.15 sq.m BMI - 26.41 Temperature - 99.6 F (HIGH) Pulse - 86 /min Respiration - 18 /min BP - 151/90 mm(hg) (HIGH) O2 Sat - 97 % Pain - 0 Fatigue - 2 Physical Examination: Constitutional - He looks good generally, Eyes - Sclerae nonicteric. Conjunctivae clear, ENMT - No lesions noted in the oral cavity, Hematologic/Lymphatic - No cervical, clavicular, or axillary adenopathy, Respiratory - Lungs are clear with good air movement bilaterally, Cardiovascular - Heart rhythm is regular. There is no murmur, gallop, or rub noted. There is no carotid bruit noted, Abdomen - Soft. Liver and spleen are not enlarged. There is no abdominal mass or ascites noted and there is no inguinal adenopathy, Extremities - No edema, Neurologic - No focal neurologic deficits noted. Lab/Imaging: CBC shows hemoglobin 15.4 g with hematocrit 46.6%, white blood cell count 6300, and platelet count 318,000. Comprehensive metabolic profile shows normal renal function with BUN 11 and creatinine 0.8 mg/dL. Bilirubin and liver enzymes are normal. LDH is normal at 154 U/L. Problem List: 1. 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 2. On 10/08/2020 he had an episode of amaurosis fugax involving the left eye. The underlying cause/source has not been determined. 3. He has known Groxxgx-Zryfv-Hlwbr disease with peripheral neuropathy. 4. Degenerative disease of the spine. 5. Chronic migraine. 6. Chronic anxiety. Problems Addressed with this Encounter and Plan: Patient with essential thrombocythemia. Molecular analysis was positive for the JAK2 (V617F) mutation. His bone marrow aspiration/biopsy showed no significant reticulin fibrosis. With his age greater than 60 and with the molecular analysis positive for the JAK2 mutation, he was in the high risk category. Per NCCN guidelines, he was recommended to have treatment with hydroxyurea together with aspirin prophylaxis. As of 07/15/2019 when he began treatment with hydroxyurea 500 mg daily together with aspirin 81 mg daily. He initially required an increase in the dosage to 500 mg twice daily. However, as of 09/21/2020 his treatment was put on hold due to mild anemia and moderately severe neutropenia. His blood counts have subsequently recovered. In the meantime, he had an episode of amaurosis fugax involving the left eye. The underlying cause/source has not been determined. At the time of the episode his platelet count was normal and he was not taking the hydroxyurea. He also had not been taking his aspirin on a consistent basis. As of his follow-up visit on 10/19/2020 his blood counts were back to normal and he restarted hydroxyurea at 500 mg on Mondays, Wednesdays, and Fridays. The dosage was subsequently decreased to 500 mg on Mondays and . He has since then been tolerating the treatment very well, and his blood counts have remained in normal range. He will continue hydroxyurea at the same dosage. He also continues aspirin prophylaxis 81 mg daily. His blood count will be rechecked in 3 months. I will see him again in 6 months. Signed By: Ish Marin M.D. <<Signature on File>>
== END 2021-08-02 12:07 | disposition home or self-care (01) ==
PROVIDERS: PCP Internal Medicine; Visit Provider Internal Medicine Medical Oncology
DX: D69.3 Immune thrombocytopenic purpura (principal); G60.0 Hereditary motor and sensory neuropathy; M47.9 Spondylosis, unspecified; F41.9 Anxiety disorder, unspecified; G43.909 Migraine, unspecified, not intractable, without status migrainosus; Z79.899 Other long term (current) drug therapy; Z87.891 Personal history of nicotine dependence
CPT/HCPCS: 99214

== ENCOUNTER 2021-11-03 10:30 | Oncology outpatient (recurring) (ONCR) | payer MEDICARE, SELFPAY ==
[2021-11-03 10:47] LABS: Basophils # 0.1 10^3/uL (0.0-0.1); Basophils % 1.1 %; Eosinophils # 0.2 10^3/uL (0.0-0.8); Eosinophils % 3.8 %; Hematocrit 47.5 % (42.0-52.0); Hemoglobin 15.8 g/dL (11.7-16.6); Lymphocytes # 0.9 10^3/uL (0.8-4.8); Lymphocytes % 13.4 %; Mean Corpuscular HGB Conc 33.3 g/dL (30.0-36.0); Mean Corpuscular Hemoglobin 31.9 pg (28.0-34.0); Mean Platelet Volume 10.2 fL (7.4-10.4); Monocytes # 0.4 10^3/uL (0.2-0.9); Monocytes % 5.9 %; Neutrophils # 4.81 10^3/uL (1.8-7.7); Neutrophils % 75.2 %; Nucleated Red Blood Cells % 0 %; Platelet Count 408 10^3/cmm (130-400); Red Blood Count 4.95 10^6/uL (4.1-5.3); Red Cell Distribution Width 14.2 % (12.1-15.1); White Blood Count 6.4 10^3/uL (4.0-10.0)
== END 2021-11-14 23:59 | disposition home or self-care (01) ==
LOC: ONCMED 10:31
PROVIDERS: PCP Internal Medicine; Visit Provider Internal Medicine Medical Oncology
DX: D47.3 Essential (hemorrhagic) thrombocythemia (principal)
CPT/HCPCS: 85025

== ENCOUNTER 2022-01-31 13:15 | Oncology outpatient (recurring) (ONCR) | payer MEDICARE, SELFPAY ==
[2022-01-31 12:06] LABS: Basophils # 0.1 10^3/uL (0.0-0.1); Basophils % 0.9 %; Eosinophils # 0.3 10^3/uL (0.0-0.8); Eosinophils % 4.9 %; Hematocrit 44.2 % (42.0-52.0); Lymphocytes % 14.7 %; Mean Corpuscular HGB Conc 33.9 g/dL (30.0-36.0); Mean Corpuscular Hemoglobin 32.2 pg (28.0-34.0); Mean Corpuscular Volume 94.8 fl (80-94); Mean Platelet Volume 10.5 fL (7.4-10.4); Monocytes # 0.6 10^3/uL (0.2-0.9); Monocytes % 8.2 %; Neutrophils # 4.71 10^3/uL (1.8-7.7); Neutrophils % 70.7 %; Nucleated Red Blood Cells % 0 %; Platelet Count 403 10^3/cmm (130-400); Red Blood Count 4.66 10^6/uL (4.1-5.3); White Blood Count 6.7 10^3/uL (4.0-10.0)
[2022-01-31 12:22] LABS: Alanine Aminotransferase 11 U/L (0-41); Albumin Level 3.8 g/dL (3.5-5.2); Alkaline Phosphatase 80 U/L (40-130); Anion Gap 13.1 (5-19); Aspartate Amino Transferase 12 U/L (0-40); Blood Urea Nitrogen 7 mg/dL (8-23); Carbon Dioxide 26 mmol/L (22-29); Chloride 105 mmol/L (98-107); Globulin 2.1 g/dL (1.3-4.6); Glomerular Filtration Rate 84.4 mL/min (90-130); Glucose 118 mg/dL (65-115); Lactate Dehydrogenase 186 U/L (135-225); Osmolality Calculated 289 mOsm/kg (285-295); Potassium 4.1 mmol/L (3.5-5.1); Sodium 140 mmol/L (136-145); Total Bilirubin 0.2 mg/dL (0.15-1.2); Total Protein 5.9 g/dL (6.6-8.7)
== END 2022-02-14 23:59 | disposition home or self-care (01) ==
PROVIDERS: Nurse Practitioner; PCP Internal Medicine; Visit Provider Internal Medicine Medical Oncology
DX: D47.3 Essential (hemorrhagic) thrombocythemia (principal); Z79.899 Other long term (current) drug therapy; Z79.82 Long term (current) use of aspirin
CPT/HCPCS: 36415; 80053; 83615; 85025; 99214

== ENCOUNTER 2022-05-03 12:56 | Outpatient (CLI) | payer MEDICARE, SELFPAY ==
[2022-05-03 13:20] LABS: Basophils # 0.1 10^3/uL (0.0-0.1); Eosinophils # 0.2 10^3/uL (0.0-0.8); Eosinophils % 2.4 %; Hematocrit 45.1 % (42.0-52.0); Hemoglobin 14.9 g/dL (11.7-16.6); Lymphocytes # 0.9 10^3/uL (0.8-4.8); Lymphocytes % 15.1 %; Mean Corpuscular Hemoglobin 31.9 pg (28.0-34.0); Mean Corpuscular Volume 96.6 fl (80-94); Mean Platelet Volume 10.3 fL (7.4-10.4); Monocytes # 0.4 10^3/uL (0.2-0.9); Monocytes % 7.2 %; Neutrophils # 4.52 10^3/uL (1.8-7.7); Neutrophils % 73.6 %; Nucleated Red Blood Cells % 0 %; Platelet Count 356 10^3/cmm (130-400); Red Blood Count 4.67 10^6/uL (4.1-5.3); White Blood Count 6.1 10^3/uL (4.0-10.0)
== END 2022-05-03 12:57 | disposition home or self-care (01) ==
LOC: LAB 13:01
PROVIDERS: PCP Internal Medicine; Visit Provider Internal Medicine Medical Oncology
DX: D47.3 Essential (hemorrhagic) thrombocythemia (principal)
CPT/HCPCS: 36415; 85025

== ENCOUNTER 2022-08-15 11:53 | Oncology outpatient (recurring) (ONCR) | payer MEDICARE, SELFPAY ==
[2022-08-15 12:29] LABS: Basophils # 0.1 10^3/uL (0.0-0.1); Basophils % 1.4 %; Eosinophils # 0.2 10^3/uL (0.0-0.8); Eosinophils % 3.7 %; Hematocrit 44.7 % (42.0-52.0); Hemoglobin 15.3 g/dL (11.7-16.6); Lymphocytes # 0.9 10^3/uL (0.8-4.8); Lymphocytes % 15.8 %; Mean Corpuscular HGB Conc 34.2 g/dL (30.0-36.0); Mean Corpuscular Hemoglobin 32.4 pg (28.0-34.0); Mean Corpuscular Volume 94.7 fl (80-94); Mean Platelet Volume 10.3 fL (7.4-10.4); Monocytes # 0.5 10^3/uL (0.2-0.9); Monocytes % 8.6 %; Neutrophils # 4.14 10^3/uL (1.8-7.7); Neutrophils % 70.2 %; Nucleated Red Blood Cells % 0 %; Platelet Count 367 10^3/cmm (130-400); Red Blood Count 4.72 10^6/uL (4.1-5.3); White Blood Count 5.9 10^3/uL (4.0-10.0)
[2022-08-15 12:54] LABS: Alanine Aminotransferase 15 U/L (0-41); Alkaline Phosphatase 71 U/L (40-130); Anion Gap 12.5 (5-19); Aspartate Amino Transferase 16 U/L (0-40); Blood Urea Nitrogen 13 mg/dL (8-23); Carbon Dioxide 27 mmol/L (22-29); Chloride 103 mmol/L (98-107); Globulin 2.5 g/dL (1.3-4.6); Glomerular Filtration Rate 84.4 mL/min (90-130); Glucose 79 mg/dL (65-115); Lactate Dehydrogenase 191 U/L (135-225); Osmolality Calculated 285 mOsm/kg (285-295); Potassium 4.5 mmol/L (3.5-5.1); Sodium 138 mmol/L (136-145); Total Bilirubin 0.3 mg/dL (0.15-1.2); Total Protein 6.5 g/dL (6.6-8.7)
== END 2022-09-14 23:59 | disposition home or self-care (01) ==
PROVIDERS: PCP Internal Medicine; Visit Provider Internal Medicine Medical Oncology
DX: D47.3 Essential (hemorrhagic) thrombocythemia (principal); Z79.899 Other long term (current) drug therapy; Z79.82 Long term (current) use of aspirin
CPT/HCPCS: 36415; 80053; 83615; 85025; 99214

== ENCOUNTER 2022-10-08 10:56 | Outpatient (CLI) | payer MEDICARE, SELFPAY ==
[2022-10-08 13:24] LABS: INR 0.99 (0.8-1.2); Partial Thromboplastin Time 28.8 SECONDS (23.9-36.7)
[2022-10-08 13:30] LABS: Homocysteine 18.71
[2022-10-09 19:34] LABS: PTT-LA-Screen 36 sec (< OR = 40)
[2022-10-10 02:25] LABS: CARDIOLIPIN AB (IGA) <2.0 APL-U/mL; CARDIOLIPIN AB (IGG) <2.0 GPL-U/mL; CARDIOLIPIN AB (IGM) <2.0 MPL-U/mL
[2022-10-11 19:34] LABS: Factor VIII Activity Clotting 100 % normal (50-180)
[2022-10-12 04:35] LABS: PROTEIN C, ACTIVITY 138 % normal (70-180)
[2022-10-12 05:15] LABS: Antithrombin III Activity 102 % normal (80-135)
[2022-10-12 22:40] LABS: Beta 2 Glycoprotein IGA <2.0 U/mL (<20.0); Beta 2 Glycoprotein IGG <2.0 U/mL (<20.0); Beta 2 Glycoprotein IGM <2.0 U/mL (<20.0)
[2022-10-13 15:45] LABS: Methylenetetrahydrofolate Red POSITIVE
[2022-10-13 16:04] LABS: PROTHROMBIN (FACTOR II) 20210G NEGATIVE
[2022-10-15 19:44] LABS: Factor 5 Leiden Mutation POSITIVE
[2023-03-13 15:22] LABS: Antithrombin III Antigen 91
== END 2022-10-08 10:57 | disposition home or self-care (01) ==
PROVIDERS: PCP Internal Medicine; Visit Provider Internal Medicine
DX: Z86.73 Personal history of transient ischemic attack (TIA), and cerebral infarction without residual deficits (principal); R79.1 Abnormal coagulation profile; Q21.12 Patent foramen ovale
CPT/HCPCS: 36415; 81241; 81291; 83090; 85210; 85240; 85300; 85301; 85303; 85306; 85610; 85613; 85670; 85730; 86146; 86147

== ENCOUNTER 2022-11-21 12:41 | Oncology outpatient (recurring) (ONCR) | payer MEDICARE, SELFPAY ==
[2022-11-21 12:55] VITALS: BP 138/83; PULSE 67; RESP 18; TEMP 37.4; O2SAT 98
[2022-11-21 13:12] LABS: Basophils # 0.1 10^3/uL (0.0-0.1); Eosinophils # 0.3 10^3/uL (0.0-0.8); Eosinophils % 3.2 %; Hematocrit 42.7 % (42.0-52.0); Hemoglobin 14.3 g/dL (11.7-16.6); Lymphocytes % 12.1 %; Mean Corpuscular HGB Conc 33.5 g/dL (30.0-36.0); Mean Corpuscular Hemoglobin 31.6 pg (28.0-34.0); Mean Corpuscular Volume 94.3 fl (80-94); Monocytes # 0.6 10^3/uL (0.2-0.9); Monocytes % 7.4 %; Neutrophils # 6.34 10^3/uL (1.8-7.7); Neutrophils % 75.9 %; Nucleated Red Blood Cells % 0 %; Platelet Count 418 10^3/cmm (130-400); Red Blood Count 4.53 10^6/uL (4.1-5.3); White Blood Count 8.4 10^3/uL (4.0-10.0)
== END 2022-12-14 23:59 | disposition home or self-care (01) ==
PROVIDERS: Nurse Practitioner; PCP Internal Medicine; Visit Provider Internal Medicine Medical Oncology
DX: D47.3 Essential (hemorrhagic) thrombocythemia (principal)
CPT/HCPCS: 36415; 85025

== ENCOUNTER 2023-02-20 10:44 | Oncology outpatient (recurring) (ONCR) | payer MEDICARE, SELFPAY ==
[2023-02-20 10:52] VITALS: BP 157/88; PULSE 77; RESP 18; TEMP 36.7; O2SAT 96
[2023-02-20 11:15] LABS: Basophils # 0.1 10^3/uL (0.0-0.1); Basophils % 1.3 %; Eosinophils # 0.3 10^3/uL (0.0-0.8); Eosinophils % 4.4 %; Hematocrit 43.8 % (37-53); Lymphocytes # 0.9 10^3/uL (0.8-4.8); Mean Corpuscular HGB Conc 33.3 g/dL (30-55); Mean Platelet Volume 10.1 fL (7.4-10.4); Monocytes # 0.4 10^3/uL (0.2-0.9); Monocytes % 7.2 %; Neutrophils # 4.36 10^3/uL (1.8-7.7); Neutrophils % 71.8 %; Nucleated Red Blood Cells % 0 %; Platelet Count 434 10^3/cmm (157-399); Red Blood Count 4.71 10^6/uL (3.85-5.65); Red Cell Distribution Width 13.5 % (12.1-15.1); White Blood Count 6.08 10^3/uL (3.29-11.43)
[2023-02-20 11:37] LABS: Alanine Aminotransferase 12 U/L (0-41); Alkaline Phosphatase 76 U/L (40-130); Anion Gap 12.8 (5-19); Aspartate Amino Transferase 12 U/L (0-40); Blood Urea Nitrogen 8 mg/dL (8-23); Calcium 8.6 mg/dL (8.5-10.5); Carbon Dioxide 26 mmol/L (22-29); Chloride 105 mmol/L (98-107); Globulin 2.7 g/dL (1.3-4.6); Glomerular Filtration Rate 84.2 mL/min (90-130); Glucose 107 mg/dL (65-115); Lactate Dehydrogenase 173 U/L (135-225); Osmolality Calculated 289 mOsm/kg (285-295); Potassium 3.8 mmol/L (3.5-5.1); Sodium 140 mmol/L (136-145); Total Bilirubin 0.4 mg/dL (0.15-1.2); Total Protein 6.7 g/dL (6.6-8.7)
== END 2023-03-16 23:59 | disposition home or self-care (01) ==
PROVIDERS: Nurse Practitioner; PCP Internal Medicine; Visit Provider Internal Medicine Medical Oncology
DX: D47.3 Essential (hemorrhagic) thrombocythemia (principal); D68.51 Activated protein C resistance; Z79.899 Other long term (current) drug therapy; Z53.9 Procedure and treatment not carried out, unspecified reason
CPT/HCPCS: 36415; 80053; 83615; 85025; 99214

== ENCOUNTER 2023-05-22 13:46 | Oncology outpatient (recurring) (ONCR) | payer MEDICARE, SELFPAY ==
[2023-05-22 14:20] VITALS: BP 129/77; PULSE 66; RESP 16; TEMP 37; O2SAT 95
[2023-05-22 14:38] LABS: Basophils # 0.1 10^3/uL (0.0-0.1); Basophils % 1.1 %; Eosinophils # 0.3 10^3/uL (0.0-0.8); Eosinophils % 4.8 %; Hematocrit 42.6 % (37-53); Lymphocytes # 1.2 10^3/uL (0.8-4.8); Lymphocytes % 18.6 %; Mean Corpuscular HGB Conc 33.8 g/dL (30-55); Mean Corpuscular Hemoglobin 31.5 pg (27-33); Mean Corpuscular Volume 93.2 fl (82-101); Mean Platelet Volume 9.8 fL (7.4-10.4); Monocytes # 0.5 10^3/uL (0.2-0.9); Monocytes % 7.9 %; Neutrophils # 4.35 10^3/uL (1.8-7.7); Neutrophils % 67.3 %; Nucleated Red Blood Cells % 0 %; Platelet Count 429 10^3/cmm (157-399); Red Blood Count 4.57 10^6/uL (3.85-5.65); Red Cell Distribution Width 13.9 % (12.1-15.1); White Blood Count 6.46 10^3/uL (3.29-11.43)
== END 2023-06-16 23:59 | disposition home or self-care (01) ==
LOC: ONCMED 13:47
PROVIDERS: PCP Internal Medicine; Visit Provider Internal Medicine Medical Oncology
DX: D47.3 Essential (hemorrhagic) thrombocythemia (principal)
CPT/HCPCS: 36415; 85025

== ENCOUNTER 2023-07-01 13:28 | Outpatient (CLI) | payer MEDICARE, SELFPAY ==
--- NOTE | 2023-07-01 13:34 | MR_ITS ---
WS: [id number] MRI RIGHT SHOULDER NONCONTRAST TECHNIQUE: Sagittal T2, coronal T1, T2 and proton density imaging. Axial gradient PDE imaging. CLINICAL INFORMATION: Shoulder derangement COMPARISON: None. 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 Moderate to adv anced degenerative arthritis AC joint with mild downsloping acromion. Subacromial spurring. Subacromi al and subdeltoid effusion. Moderate joint effusion. Fluid and edema at the AC joint. High-grade comp lete tear of the supraspinatus with tendon retraction to the level of the glenohumeral joint. Chronic thinning of the infraspinatus which is intact distally. Normal teres minor. Subcoracoid effusion. Tendinopathy distal subscapularis with chronic thinning. Di stal subscapularis fibers appear intact. Biceps tendon intact within the bicipital groove. Intra-nathaniel cular biceps tendon appears intact. Degenerative fraying of the glenoid labrum with advanced glenohum eral joint space narrowing. IMPRESSION: 1. High-grade complete tear of the supraspinatus with retraction to the level of the glenohumeral jay int. Atrophy of the supraspinatus muscle belly. 2. Chronic thinning of the infraspinatus with intact fibers distally. 3. Chronic thinning with tendinopathy distal subscapularis which appears intact. 4. Biceps tendon appears intact within the bicipital groove. 5. Advanced degenerative narrowing of the glenohumeral articulation with a moderate joint effusion. 6. Moderate to advanced arthritis AC joint with fluid and edema. Subacromial and subdeltoid fluid.
== END 2023-07-01 13:29 | disposition home or self-care (01) ==
LOC: RAD 13:29
PROVIDERS: Visit Provider Internal Medicine
DX: M24.811 Other specific joint derangements of right shoulder, not elsewhere classified (principal); M13.811 Other specified arthritis, right shoulder; M75.121 Complete rotator cuff tear or rupture of right shoulder, not specified as traumatic
CPT/HCPCS: 73221

== ENCOUNTER 2023-08-21 11:28 | Oncology outpatient (recurring) (ONCR) | payer MEDICARE, SELFPAY ==
[2023-08-21 11:43] LABS: Basophils # 0.1 10^3/uL (0.0-0.1); Basophils % 1.2 %; Eosinophils # 0.3 10^3/uL (0.0-0.8); Eosinophils % 4.8 %; Hematocrit 44.1 % (37-53); Lymphocytes % 13.8 %; Mean Corpuscular HGB Conc 33.8 g/dL (30-55); Mean Corpuscular Volume 91.7 fl (82-101); Mean Platelet Volume 10.5 fL (7.4-10.4); Monocytes # 0.6 10^3/uL (0.2-0.9); Monocytes % 8.7 %; Neutrophils # 4.91 10^3/uL (1.8-7.7); Neutrophils % 71.2 %; Nucleated Red Blood Cells % 0 %; Platelet Count 469 10^3/cmm (157-399); Red Blood Count 4.81 10^6/uL (3.85-5.65); Red Cell Distribution Width 13.6 % (12.1-15.1); White Blood Count 6.89 10^3/uL (3.29-11.43)
[2023-08-21 12:04] LABS: Alanine Aminotransferase 16 U/L (0-41); Albumin Level 3.8 g/dL (3.5-5.2); Alkaline Phosphatase 68 U/L (40-130); Anion Gap 15.2 (5-19); Aspartate Amino Transferase 17 U/L (0-40); Blood Urea Nitrogen 11 mg/dL (8-23); Calcium 8.5 mg/dL (8.5-10.5); Carbon Dioxide 24 mmol/L (22-29); Chloride 102 mmol/L (98-107); Globulin 2.5 g/dL (1.3-4.6); Glomerular Filtration Rate 84.2 mL/min (90-130); Glucose 100 mg/dL (65-115); Lactate Dehydrogenase 244 U/L (135-225); Osmolality Calculated 283 mOsm/kg (285-295); Potassium 4.2 mmol/L (3.5-5.1); Sodium 137 mmol/L (136-145); Total Bilirubin 0.4 mg/dL (0.15-1.2); Total Protein 6.3 g/dL (6.6-8.7)
== END 2023-09-15 23:59 | disposition home or self-care (01) ==
PROVIDERS: Visit Provider Internal Medicine Medical Oncology
DX: D47.3 Essential (hemorrhagic) thrombocythemia (principal); D68.51 Activated protein C resistance; Z79.899 Other long term (current) drug therapy
CPT/HCPCS: 36415; 80053; 83615; 85025; 99214

== ENCOUNTER 2023-10-09 08:39 | Oncology outpatient (recurring) (ONCR) | payer MEDICARE, SELFPAY ==
[2023-10-09 08:49] LABS: Basophils # 0.1 10^3/uL (0.0-0.1); Basophils % 1.3 %; Eosinophils # 0.8 10^3/uL (0.0-0.8); Eosinophils % 9.2 %; Hematocrit 44.4 % (37-53); Lymphocytes # 1.2 10^3/uL (0.8-4.8); Lymphocytes % 14.8 %; Mean Corpuscular HGB Conc 32.7 g/dL (30-55); Mean Corpuscular Hemoglobin 30.1 pg (27-33); Mean Corpuscular Volume 92.3 fl (82-101); Mean Platelet Volume 10.1 fL (7.4-10.4); Monocytes # 0.7 10^3/uL (0.2-0.9); Monocytes % 8.1 %; Neutrophils # 5.45 10^3/uL (1.8-7.7); Neutrophils % 66.1 %; Nucleated Red Blood Cells % 0 %; Platelet Count 499 10^3/cmm (157-399); Red Blood Count 4.81 10^6/uL (3.85-5.65); Red Cell Distribution Width 14.2 % (12.1-15.1); White Blood Count 8.25 10^3/uL (3.29-11.43)
[2023-10-09 09:05] LABS: Alanine Aminotransferase 17 U/L (0-41); Albumin Level 3.7 g/dL (3.5-5.2); Alkaline Phosphatase 89 U/L (40-130); Anion Gap 11.4 (5-19); Aspartate Amino Transferase 21 U/L (0-40); Blood Urea Nitrogen 13 mg/dL (8-23); Carbon Dioxide 30 mmol/L (22-29); Chloride 102 mmol/L (98-107); Globulin 3.1 g/dL (1.3-4.6); Glomerular Filtration Rate 84.2 mL/min (90-130); Glucose 95 mg/dL (65-115); Osmolality Calculated 288 mOsm/kg (285-295); Potassium 4.4 mmol/L (3.5-5.1); Sodium 139 mmol/L (136-145); Total Bilirubin 0.2 mg/dL (0.15-1.2); Total Protein 6.8 g/dL (6.6-8.7)
== END 2023-10-15 23:59 | disposition home or self-care (01) ==
PROVIDERS: Nurse Practitioner Family; Visit Provider Internal Medicine Medical Oncology
DX: D47.3 Essential (hemorrhagic) thrombocythemia (principal); Z53.9 Procedure and treatment not carried out, unspecified reason
CPT/HCPCS: 36415; 80053; 85025

== ENCOUNTER 2023-11-25 10:16 | Oncology outpatient (recurring) (ONCR) | payer MEDICARE, SELFPAY ==
[2023-11-25 10:51] LABS: Basophils # 0.1 10^3/uL (0.0-0.1); Basophils % 0.8 %; Eosinophils # 0.3 10^3/uL (0.0-0.8); Eosinophils % 4.2 %; Hematocrit 42.2 % (37-53); Lymphocytes # 0.9 10^3/uL (0.8-4.8); Lymphocytes % 12.9 %; Mean Corpuscular HGB Conc 33.6 g/dL (30-55); Mean Corpuscular Hemoglobin 30.7 pg (27-33); Mean Corpuscular Volume 91.3 fl (82-101); Mean Platelet Volume 10.2 fL (7.4-10.4); Monocytes # 0.5 10^3/uL (0.2-0.9); Monocytes % 7.5 %; Neutrophils # 5.27 10^3/uL (1.8-7.7); Neutrophils % 74.2 %; Nucleated Red Blood Cells % 0 %; Platelet Count 430 10^3/cmm (157-399); Red Blood Count 4.62 10^6/uL (3.85-5.65); Red Cell Distribution Width 14.9 % (12.1-15.1); White Blood Count 7.11 10^3/uL (3.29-11.43)
[2023-11-25 11:10] LABS: Alanine Aminotransferase 11 U/L (0-41); Albumin Level 3.8 g/dL (3.5-5.2); Alkaline Phosphatase 75 U/L (40-130); Aspartate Amino Transferase 15 U/L (0-40); Blood Urea Nitrogen 7 mg/dL (8-23); Calcium 8.4 mg/dL (8.5-10.5); Carbon Dioxide 26 mmol/L (22-29); Chloride 105 mmol/L (98-107); Globulin 2.8 g/dL (1.3-4.6); Glomerular Filtration Rate 96.4 mL/min (90-130); Glucose 100 mg/dL (65-115); Osmolality Calculated 290 mOsm/kg (285-295); Sodium 141 mmol/L (136-145); Total Bilirubin 0.3 mg/dL (0.15-1.2); Total Protein 6.6 g/dL (6.6-8.7)
== END 2023-12-15 23:59 | disposition home or self-care (01) ==
PROVIDERS: Nurse Practitioner Family; Visit Provider Internal Medicine Medical Oncology
DX: D47.3 Essential (hemorrhagic) thrombocythemia (principal)
CPT/HCPCS: 36415; 80053; 85025; 99213

== ENCOUNTER 2024-01-13 15:23 | Outpatient (CLI) | payer MEDICARE, SELFPAY ==
[2024-01-13 17:21] LABS: Alanine Aminotransferase 22 U/L (0-41); Albumin Level 3.5 g/dL (3.5-5.2); Alkaline Phosphatase 117 U/L (40-130); Anion Gap 15.6 (5-19); Aspartate Amino Transferase 22 U/L (0-40); Blood Urea Nitrogen 7 mg/dL (8-23); Calcium 8.4 mg/dL (8.5-10.5); Carbon Dioxide 24 mmol/L (22-29); Chloride 102 mmol/L (98-107); Chol HDL Ratio 2.62 mg/dL (1.0-5.00); Cholesterol 89 mg/dL (0-200); Globulin 3.2 g/dL (1.3-4.6); Glomerular Filtration Rate 96.1 mL/min (90-130); Glucose 105 mg/dL (65-115); HDL Cholesterol 34 mg/dL (60-100); LDL Cholesterol Calculated 41 mg/dL (50-129); LDL HDL Ratio 1.21 RATIO (0.00-3.22); Osmolality Calculated 284 mOsm/kg (285-295); Potassium 3.6 mmol/L (3.5-5.1); Sodium 138 mmol/L (136-145); Total Bilirubin 0.5 mg/dL (0.15-1.2); Total Protein 6.7 g/dL (6.6-8.7); Triglycerides 69 mg/dL (0-150)
== END 2024-01-13 15:24 | disposition home or self-care (01) ==
LOC: LAB 15:27
PROVIDERS: PCP Internal Medicine
DX: D68.51 Activated protein C resistance; I10 Essential (primary) hypertension; D47.3 Essential (hemorrhagic) thrombocythemia
CPT/HCPCS: 80053; 80061

== ENCOUNTER 2024-01-15 13:18 | Outpatient (CLI) | payer MEDICARE, SELFPAY ==
[2024-01-15 13:35] LABS: Basophils # 0.1 10^3/uL (0.0-0.1); Basophils % 0.8 %; Eosinophils # 0.2 10^3/uL (0.0-0.8); Eosinophils % 3.5 %; Hematocrit 39.4 % (37-53); Lymphocytes # 0.7 10^3/uL (0.8-4.8); Lymphocytes % 10.6 %; Mean Platelet Volume 9.7 fL (7.4-10.4); Monocytes # 0.5 10^3/uL (0.2-0.9); Monocytes % 7.3 %; Neutrophils # 4.87 10^3/uL (1.8-7.7); Neutrophils % 77.3 %; Nucleated Red Blood Cells % 0 %; Platelet Count 532 10^3/cmm (157-399); Red Blood Count 4.19 10^6/uL (3.85-5.65); Red Cell Distribution Width 14.1 % (12.1-15.1)
[2024-01-15 13:53] LABS: C Reactive Protein 68.5 mg/L (0.0-4.9)
[2024-01-15 14:03] LABS: Erythrocyte Sedimentation Rate 22 mm/hr (0-10)
== END 2024-01-15 13:19 | disposition home or self-care (01) ==
LOC: LAB 13:21
PROVIDERS: PCP Internal Medicine; Visit Provider Family Medicine
DX: Z96.611 Presence of right artificial shoulder joint (principal)
CPT/HCPCS: 36415; 85025; 85651; 86140

== ENCOUNTER 2024-02-14 08:30 | Oncology outpatient (recurring) (ONCR) | payer MEDICARE, SELFPAY ==
[2024-01-31 09:11] LABS: Basophils # 0.1 10^3/uL (0.0-0.1); Basophils % 1.1 %; Eosinophils # 0.4 10^3/uL (0.0-0.8); Eosinophils % 5.5 %; Hematocrit 33.3 % (37-53); Lymphocytes # 1.2 10^3/uL (0.8-4.8); Lymphocytes % 15.9 %; Mean Corpuscular HGB Conc 32.7 g/dL (30-55); Mean Corpuscular Volume 94.6 fl (82-101); Mean Platelet Volume 10.4 fL (7.4-10.4); Monocytes # 0.6 10^3/uL (0.2-0.9); Neutrophils # 5.03 10^3/uL (1.8-7.7); Nucleated Red Blood Cells % 0 %; Platelet Count 356 10^3/cmm (157-399); Red Blood Count 3.52 10^6/uL (3.85-5.65); Red Cell Distribution Width 15.1 % (12.1-15.1); White Blood Count 7.29 10^3/uL (3.29-11.43)
[2024-01-31 09:20] LABS: Alanine Aminotransferase 12 U/L (0-41); Albumin Level 3.2 g/dL (3.5-5.2); Alkaline Phosphatase 86 U/L (40-130); Anion Gap 15.4 (5-19); Aspartate Amino Transferase 21 U/L (0-40); Blood Urea Nitrogen 11 mg/dL (8-23); Calcium 8.4 mg/dL (8.5-10.5); Carbon Dioxide 26 mmol/L (22-29); Chloride 104 mmol/L (98-107); Globulin 2.9 g/dL (1.3-4.6); Glomerular Filtration Rate 112.1 mL/min (90-130); Glucose 104 mg/dL (65-115); Osmolality Calculated 292 mOsm/kg (285-295); Potassium 4.4 mmol/L (3.5-5.1); Sodium 141 mmol/L (136-145); Total Bilirubin 0.2 mg/dL (0.15-1.2); Total Protein 6.1 g/dL (6.6-8.7)
[2024-01-31 09:45] LABS: Vancomycin Trough 17.5 ug/mL (10-15)
[2024-02-03 09:21] LABS: Basophils # 0.1 10^3/uL (0.0-0.1); Basophils % 1.3 %; Eosinophils # 0.5 10^3/uL (0.0-0.8); Eosinophils % 6.9 %; Hematocrit 35.5 % (37-53); Lymphocytes # 0.8 10^3/uL (0.8-4.8); Lymphocytes % 11.1 %; Mean Corpuscular HGB Conc 32.4 g/dL (30-55); Mean Corpuscular Hemoglobin 30.7 pg (27-33); Mean Corpuscular Volume 94.9 fl (82-101); Mean Platelet Volume 10.4 fL (7.4-10.4); Monocytes # 0.6 10^3/uL (0.2-0.9); Monocytes % 8.1 %; Neutrophils # 4.89 10^3/uL (1.8-7.7); Neutrophils % 72.2 %; Nucleated Red Blood Cells % 0 %; Platelet Count 326 10^3/cmm (157-399); Red Blood Count 3.74 10^6/uL (3.85-5.65); Red Cell Distribution Width 14.8 % (12.1-15.1); White Blood Count 6.78 10^3/uL (3.29-11.43)
[2024-02-03 09:48] LABS: Vancomycin Trough 19.3 ug/mL (10-15)
[2024-02-03 09:49] LABS: Alanine Aminotransferase 31 U/L (0-41); Albumin Level 3.4 g/dL (3.5-5.2); Alkaline Phosphatase 88 U/L (40-130); Anion Gap 16.4 (5-19); Aspartate Amino Transferase 40 U/L (0-40); Blood Urea Nitrogen 9 mg/dL (8-23); Calcium 8.2 mg/dL (8.5-10.5); Carbon Dioxide 24 mmol/L (22-29); Chloride 101 mmol/L (98-107); Glomerular Filtration Rate 112.1 mL/min (90-130); Glucose 112 mg/dL (65-115); Osmolality Calculated 283 mOsm/kg (285-295); Potassium 4.4 mmol/L (3.5-5.1); Sodium 137 mmol/L (136-145); Total Bilirubin 0.2 mg/dL (0.15-1.2); Total Protein 6.4 g/dL (6.6-8.7)
[2024-02-07 09:46] LABS: Basophils # 0.1 10^3/uL (0.0-0.1); Basophils % 1.1 %; Eosinophils # 0.7 10^3/uL (0.0-0.8); Eosinophils % 11.5 %; Hematocrit 36.2 % (37-53); Lymphocytes # 0.9 10^3/uL (0.8-4.8); Lymphocytes % 15.4 %; Mean Corpuscular Hemoglobin 30.9 pg (27-33); Mean Corpuscular Volume 96.5 fl (82-101); Mean Platelet Volume 10.8 fL (7.4-10.4); Monocytes # 0.6 10^3/uL (0.2-0.9); Neutrophils # 3.81 10^3/uL (1.8-7.7); Neutrophils % 62.3 %; Nucleated Red Blood Cells % 0 %; Platelet Count 309 10^3/cmm (157-399); Red Blood Count 3.75 10^6/uL (3.85-5.65); White Blood Count 6.11 10^3/uL (3.29-11.43)
[2024-02-07 10:14] LABS: Alanine Aminotransferase 54 U/L (0-41); Albumin Level 3.7 g/dL (3.5-5.2); Alkaline Phosphatase 93 U/L (40-130); Anion Gap 15.4 (5-19); Aspartate Amino Transferase 44 U/L (0-40); Blood Urea Nitrogen 11 mg/dL (8-23); Calcium 8.7 mg/dL (8.5-10.5); Carbon Dioxide 27 mmol/L (22-29); Chloride 101 mmol/L (98-107); Globulin 2.8 g/dL (1.3-4.6); Glomerular Filtration Rate 96.1 mL/min (90-130); Glucose 101 mg/dL (65-115); Osmolality Calculated 288 mOsm/kg (285-295); Potassium 4.4 mmol/L (3.5-5.1); Sodium 139 mmol/L (136-145); Total Bilirubin 0.3 mg/dL (0.15-1.2); Total Protein 6.5 g/dL (6.6-8.7)
[2024-02-07 10:18] LABS: Vancomycin Trough 19.6 ug/mL (10-15)
[2024-02-11] MEDS: alteplase 1 mg/mL SDV 2 mL 2 MG INTRACATH (08:39)
[2024-02-11 09:14] LABS: Basophils # 0.1 10^3/uL (0.0-0.1); Eosinophils # 0.4 10^3/uL (0.0-0.8); Eosinophils % 5.6 %; Hematocrit 36.3 % (37-53); Lymphocytes # 0.7 10^3/uL (0.8-4.8); Lymphocytes % 11.3 %; Mean Corpuscular HGB Conc 32.2 g/dL (30-55); Mean Corpuscular Hemoglobin 30.4 pg (27-33); Mean Corpuscular Volume 94.3 fl (82-101); Mean Platelet Volume 10.3 fL (7.4-10.4); Monocytes # 0.5 10^3/uL (0.2-0.9); Monocytes % 8.3 %; Neutrophils # 4.64 10^3/uL (1.8-7.7); Neutrophils % 73.5 %; Nucleated Red Blood Cells % 0 %; Platelet Count 292 10^3/cmm (157-399); Red Blood Count 3.85 10^6/uL (3.85-5.65); Red Cell Distribution Width 14.9 % (12.1-15.1)
[2024-02-11 09:28] LABS: Vancomycin Trough 21.5 ug/mL (10-15)
[2024-02-11 09:30] LABS: Alanine Aminotransferase 31 U/L (0-41); Albumin Level 3.7 g/dL (3.5-5.2); Alkaline Phosphatase 83 U/L (40-130); Anion Gap 16.1 (5-19); Aspartate Amino Transferase 20 U/L (0-40); Blood Urea Nitrogen 14 mg/dL (8-23); C Reactive Protein 5.1 mg/L (0.0-4.9); Calcium 8.3 mg/dL (8.5-10.5); Carbon Dioxide 23 mmol/L (22-29); Chloride 103 mmol/L (98-107); Globulin 2.8 g/dL (1.3-4.6); Glomerular Filtration Rate 83.9 mL/min (90-130); Glucose 97 mg/dL (65-115); Lactate Dehydrogenase 228 U/L (135-225); Osmolality Calculated 286 mOsm/kg (285-295); Potassium 4.1 mmol/L (3.5-5.1); Sodium 138 mmol/L (136-145); Total Bilirubin 0.3 mg/dL (0.15-1.2); Total Protein 6.5 g/dL (6.6-8.7)
[2024-02-11 10:13] LABS: Erythrocyte Sedimentation Rate 25 mm/hr (0-10)
[2024-02-14 08:43] VITALS: BP 122/68; PULSE 86; RESP 16; TEMP 36.6; O2SAT 96
[2024-02-14 08:54] LABS: Basophils # 0.1 10^3/uL (0.0-0.1); Basophils % 1.3 %; Eosinophils # 0.4 10^3/uL (0.0-0.8); Eosinophils % 8.2 %; Hematocrit 35.6 % (37-53); Lymphocytes % 17.8 %; Mean Corpuscular HGB Conc 32.3 g/dL (30-55); Mean Corpuscular Hemoglobin 30.7 pg (27-33); Mean Corpuscular Volume 94.9 fl (82-101); Mean Platelet Volume 10.7 fL (7.4-10.4); Monocytes # 0.4 10^3/uL (0.2-0.9); Monocytes % 7.9 %; Neutrophils # 3.45 10^3/uL (1.8-7.7); Neutrophils % 64.4 %; Nucleated Red Blood Cells % 0 %; Platelet Count 265 10^3/cmm (157-399); Red Blood Count 3.75 10^6/uL (3.85-5.65); Red Cell Distribution Width 15.2 % (12.1-15.1); White Blood Count 5.35 10^3/uL (3.29-11.43)
[2024-02-14 09:15] LABS: Alanine Aminotransferase 27 U/L (0-41); Albumin Level 3.7 g/dL (3.5-5.2); Alkaline Phosphatase 79 U/L (40-130); Anion Gap 13.8 (5-19); Aspartate Amino Transferase 19 U/L (0-40); Blood Urea Nitrogen 9 mg/dL (8-23); Calcium 8.9 mg/dL (8.5-10.5); Carbon Dioxide 26 mmol/L (22-29); Chloride 102 mmol/L (98-107); Globulin 2.6 g/dL (1.3-4.6); Glomerular Filtration Rate 96.1 mL/min (90-130); Glucose 107 mg/dL (65-115); Osmolality Calculated 285 mOsm/kg (285-295); Potassium 3.8 mmol/L (3.5-5.1); Sodium 138 mmol/L (136-145); Total Bilirubin 0.3 mg/dL (0.15-1.2); Total Protein 6.3 g/dL (6.6-8.7)
== END 2024-02-15 23:59 | disposition home or self-care (01) ==
PROVIDERS: Internal Medicine; PCP Internal Medicine; Visit Provider Internal Medicine Medical Oncology
DX: D47.3 Essential (hemorrhagic) thrombocythemia (principal)
CPT/HCPCS: 36592; 36593; 80053; 80202; 83615; 85025; 85651; 86140; 96374; J2997

== ENCOUNTER 2024-03-04 09:15 | Oncology outpatient (recurring) (ONCR) | payer MEDICARE, SELFPAY ==
[2024-02-21 09:07] LABS: Basophils # 0.1 10^3/uL (0.0-0.1); Basophils % 1.2 %; Eosinophils # 0.4 10^3/uL (0.0-0.8); Eosinophils % 7.9 %; Hematocrit 36.3 % (37-53); Lymphocytes % 18.7 %; Mean Corpuscular HGB Conc 32.8 g/dL (30-55); Mean Corpuscular Hemoglobin 30.8 pg (27-33); Mean Platelet Volume 10.5 fL (7.4-10.4); Monocytes # 0.4 10^3/uL (0.2-0.9); Monocytes % 8.1 %; Neutrophils # 3.22 10^3/uL (1.8-7.7); Neutrophils % 63.5 %; Nucleated Red Blood Cells % 0 %; Platelet Count 243 10^3/cmm (157-399); Red Blood Count 3.86 10^6/uL (3.85-5.65); Red Cell Distribution Width 15.3 % (12.1-15.1); White Blood Count 5.07 10^3/uL (3.29-11.43)
[2024-02-21 09:26] LABS: Alanine Aminotransferase 17 U/L (0-41); Albumin Level 3.7 g/dL (3.5-5.2); Alkaline Phosphatase 75 U/L (40-130); Anion Gap 14.2 (5-19); Aspartate Amino Transferase 17 U/L (0-40); Blood Urea Nitrogen 8 mg/dL (8-23); Calcium 8.2 mg/dL (8.5-10.5); Carbon Dioxide 25 mmol/L (22-29); Chloride 103 mmol/L (98-107); Globulin 2.6 g/dL (1.3-4.6); Glomerular Filtration Rate 83.9 mL/min (90-130); Glucose 96 mg/dL (65-115); Osmolality Calculated 284 mOsm/kg (285-295); Potassium 4.2 mmol/L (3.5-5.1); Sodium 138 mmol/L (136-145); Total Bilirubin 0.3 mg/dL (0.15-1.2); Total Protein 6.3 g/dL (6.6-8.7)
[2024-02-21 09:29] LABS: Vancomycin Trough 15.6 ug/mL (10-15)
[2024-02-24 08:17] VITALS: BP 149/82; PULSE 67; RESP 16; TEMP 36.8; O2SAT 99
[2024-02-24] MEDS: alteplase 1 mg/mL SDV 2 mL 2 MG INTRACATH ×2 (08:33)
[2024-02-24 09:32] LABS: Basophils # 0.1 10^3/uL (0.0-0.1); Eosinophils # 0.3 10^3/uL (0.0-0.8); Eosinophils % 5.9 %; Hematocrit 36.1 % (37-53); Lymphocytes # 0.9 10^3/uL (0.8-4.8); Lymphocytes % 15.9 %; Mean Corpuscular Hemoglobin 31.3 pg (27-33); Mean Platelet Volume 10.7 fL (7.4-10.4); Monocytes # 0.5 10^3/uL (0.2-0.9); Monocytes % 8.6 %; Neutrophils # 3.96 10^3/uL (1.8-7.7); Neutrophils % 68.3 %; Nucleated Red Blood Cells % 0 %; Platelet Count 242 10^3/cmm (157-399); Red Cell Distribution Width 15.3 % (12.1-15.1)
[2024-02-24 09:55] LABS: Vancomycin Trough 14.1 ug/mL (10-15)
[2024-02-24 09:58] LABS: Alanine Aminotransferase 17 U/L (0-41); Albumin Level 3.7 g/dL (3.5-5.2); Alkaline Phosphatase 72 U/L (40-130); Aspartate Amino Transferase 18 U/L (0-40); Blood Urea Nitrogen 10 mg/dL (8-23); Calcium 8.2 mg/dL (8.5-10.5); Carbon Dioxide 26 mmol/L (22-29); Chloride 104 mmol/L (98-107); Globulin 2.5 g/dL (1.3-4.6); Glomerular Filtration Rate 83.9 mL/min (90-130); Glucose 105 mg/dL (65-115); Osmolality Calculated 285 mOsm/kg (285-295); Sodium 138 mmol/L (136-145); Total Bilirubin 0.3 mg/dL (0.15-1.2); Total Protein 6.2 g/dL (6.6-8.7)
[2024-02-28 09:48] LABS: Basophils # 0.1 10^3/uL (0.0-0.1); Basophils % 1.1 %; Eosinophils # 0.3 10^3/uL (0.0-0.8); Eosinophils % 5.7 %; Lymphocytes # 0.9 10^3/uL (0.8-4.8); Lymphocytes % 17.3 %; Mean Corpuscular HGB Conc 32.4 g/dL (30-55); Mean Corpuscular Hemoglobin 30.5 pg (27-33); Mean Corpuscular Volume 94.3 fl (82-101); Mean Platelet Volume 10.8 fL (7.4-10.4); Monocytes # 0.4 10^3/uL (0.2-0.9); Monocytes % 8.2 %; Neutrophils # 3.55 10^3/uL (1.8-7.7); Neutrophils % 67.3 %; Nucleated Red Blood Cells % 0 %; Platelet Count 271 10^3/cmm (157-399); Red Blood Count 4.03 10^6/uL (3.85-5.65); Red Cell Distribution Width 15.3 % (12.1-15.1); White Blood Count 5.27 10^3/uL (3.29-11.43)
[2024-02-28 10:07] LABS: Alanine Aminotransferase 17 U/L (0-41); Albumin Level 3.8 g/dL (3.5-5.2); Alkaline Phosphatase 72 U/L (40-130); Anion Gap 13.2 (5-19); Aspartate Amino Transferase 18 U/L (0-40); Blood Urea Nitrogen 10 mg/dL (8-23); Calcium 8.6 mg/dL (8.5-10.5); Carbon Dioxide 26 mmol/L (22-29); Chloride 105 mmol/L (98-107); Globulin 2.7 g/dL (1.3-4.6); Glomerular Filtration Rate 96.1 mL/min (90-130); Glucose 109 mg/dL (65-115); Osmolality Calculated 290 mOsm/kg (285-295); Potassium 4.2 mmol/L (3.5-5.1); Sodium 140 mmol/L (136-145); Total Bilirubin 0.2 mg/dL (0.15-1.2); Total Protein 6.5 g/dL (6.6-8.7)
[2024-02-28 10:14] LABS: Vancomycin Trough 16.9 ug/mL (10-15)
[2024-03-02 08:39] LABS: Basophils # 0.1 10^3/uL (0.0-0.1); Basophils % 1.6 %; Eosinophils # 0.3 10^3/uL (0.0-0.8); Eosinophils % 6.6 %; Hematocrit 35.8 % (37-53); Lymphocytes # 0.9 10^3/uL (0.8-4.8); Lymphocytes % 20.9 %; Mean Corpuscular HGB Conc 32.7 g/dL (30-55); Mean Corpuscular Hemoglobin 30.7 pg (27-33); Mean Platelet Volume 10.7 fL (7.4-10.4); Monocytes # 0.4 10^3/uL (0.2-0.9); Monocytes % 8.4 %; Neutrophils # 2.74 10^3/uL (1.8-7.7); Nucleated Red Blood Cells % 0 %; Platelet Count 263 10^3/cmm (157-399); Red Blood Count 3.81 10^6/uL (3.85-5.65); Red Cell Distribution Width 15.2 % (12.1-15.1); White Blood Count 4.41 10^3/uL (3.29-11.43)
[2024-03-02 08:57] LABS: Alanine Aminotransferase 17 U/L (0-41); Albumin Level 3.7 g/dL (3.5-5.2); Alkaline Phosphatase 68 U/L (40-130); Anion Gap 12.7 (5-19); Aspartate Amino Transferase 18 U/L (0-40); Blood Urea Nitrogen 8 mg/dL (8-23); Calcium 8.3 mg/dL (8.5-10.5); Carbon Dioxide 26 mmol/L (22-29); Chloride 105 mmol/L (98-107); Globulin 2.6 g/dL (1.3-4.6); Glomerular Filtration Rate 83.9 mL/min (90-130); Glucose 147 mg/dL (65-115); Osmolality Calculated 291 mOsm/kg (285-295); Potassium 3.7 mmol/L (3.5-5.1); Sodium 140 mmol/L (136-145); Total Bilirubin 0.3 mg/dL (0.15-1.2); Total Protein 6.3 g/dL (6.6-8.7)
[2024-03-02 08:58] LABS: Erythrocyte Sedimentation Rate 10 mm/hr (0-10)
[2024-03-02 09:02] LABS: Vancomycin Trough 16.1 ug/mL (10-15)
[2024-03-04 10:55] LABS: Iron 44 ug/dL (59-158); Percent Saturation 19.1 % (20-50); Total Iron Binding Capacity 230 mcg/dl; Unsaturated Iron Binding 186 ug/dL (112-347)
== END 2024-03-16 23:59 | disposition home or self-care (01) ==
PROVIDERS: Internal Medicine; PCP Internal Medicine; Visit Provider Internal Medicine Medical Oncology
DX: D47.3 Essential (hemorrhagic) thrombocythemia (principal); B99.9 Unspecified infectious disease; D68.51 Activated protein C resistance; D64.9 Anemia, unspecified
CPT/HCPCS: 36592; 36593; 80053; 80202; 83540; 83550; 85025; 85651; 86140; 99214; J2997

== ENCOUNTER 2024-06-02 11:20 | Oncology outpatient (recurring) (ONCR) | payer MEDICARE, SELFPAY ==
[2024-06-02 11:49] LABS: Basophils # 0.1 10^3/uL (0.0-0.1); Eosinophils # 0.2 10^3/uL (0.0-0.8); Eosinophils % 3.4 %; Hematocrit 41.8 % (37-53); Lymphocytes # 0.9 10^3/uL (0.8-4.8); Mean Corpuscular HGB Conc 33.7 g/dL (30-55); Mean Corpuscular Hemoglobin 31.4 pg (27-33); Mean Corpuscular Volume 93.1 fl (82-101); Monocytes # 0.4 10^3/uL (0.2-0.9); Monocytes % 7.1 %; Neutrophils # 4.54 10^3/uL (1.8-7.7); Neutrophils % 73.2 %; Nucleated Red Blood Cells % 0 %; Platelet Count 399 10^3/cmm (157-399); Red Blood Count 4.49 10^6/uL (3.85-5.65); Red Cell Distribution Width 13.7 % (12.1-15.1)
[2024-06-02 12:10] LABS: Alanine Aminotransferase 21 U/L (0-41); Albumin Level 3.9 g/dL (3.5-5.2); Alkaline Phosphatase 74 U/L (40-130); Aspartate Amino Transferase 19 U/L (0-40); Blood Urea Nitrogen 11 mg/dL (8-23); Calcium 8.9 mg/dL (8.5-10.5); Carbon Dioxide 24 mmol/L (22-29); Chloride 104 mmol/L (98-107); Creatinine Clr Calc Pharmacy 94.5938; Globulin 2.4 g/dL (1.3-4.6); Glomerular Filtration Rate 83.9 mL/min (90-130); Glucose 116 mg/dL (65-115); Osmolality Calculated 288 mOsm/kg (285-295); Sodium 139 mmol/L (136-145); Total Bilirubin 0.4 mg/dL (0.15-1.2); Total Protein 6.3 g/dL (6.6-8.7)
[2024-06-02 12:18] LABS: Anion Gap 15.2 (5-19); Lactate Dehydrogenase 214 U/L (135-225); Potassium 4.2 mmol/L (3.5-5.1)
== END 2024-06-16 23:59 | disposition home or self-care (01) ==
PROVIDERS: Internal Medicine Medical Oncology; PCP Family Medicine; Visit Provider Internal Medicine Medical Oncology
DX: D47.3 Essential (hemorrhagic) thrombocythemia (principal); D68.51 Activated protein C resistance; E61.1 Iron deficiency; Z79.899 Other long term (current) drug therapy; Z79.01 Long term (current) use of anticoagulants; Z79.82 Long term (current) use of aspirin; Z79.64 Long term (current) use of myelosuppressive agent; Z87.891 Personal history of nicotine dependence; Z86.711 Personal history of pulmonary embolism
CPT/HCPCS: 36415; 80053; 83615; 85025; 99214

== ENCOUNTER 2024-08-06 10:30 | Oncology outpatient (recurring) (ONCR) | payer MEDICARE, SELFPAY ==
[2024-07-20 13:31] LABS: Basophils % 0.4 %; Eosinophils # 0.2 10^3/uL (0.0-0.8); Eosinophils % 3.2 %; Hematocrit 42.7 % (37-53); Lymphocytes # 0.7 10^3/uL (0.8-4.8); Lymphocytes % 10.9 %; Mean Corpuscular Hemoglobin 31.1 pg (27-33); Mean Corpuscular Volume 94.3 fl (82-101); Mean Platelet Volume 9.8 fL (7.4-10.4); Monocytes # 0.6 10^3/uL (0.2-0.9); Neutrophils # 5.14 10^3/uL (1.8-7.7); Neutrophils % 76.1 %; Nucleated Red Blood Cells % 0 %; Platelet Count 402 10^3/cmm (157-399); Red Blood Count 4.53 10^6/uL (3.85-5.65); Red Cell Distribution Width 14.3 % (12.1-15.1); White Blood Count 6.77 10^3/uL (3.29-11.43)
[2024-07-20 13:52] LABS: Alanine Aminotransferase 19 U/L (0-41); Albumin Level 3.8 g/dL (3.5-5.2); Alkaline Phosphatase 78 U/L (40-130); Anion Gap 13.7 (5-19); Aspartate Amino Transferase 18 U/L (0-40); Blood Urea Nitrogen 14 mg/dL (8-23); Calcium 7.9 mg/dL (8.5-10.5); Carbon Dioxide 28 mmol/L (22-29); Chloride 100 mmol/L (98-107); Globulin 2.7 g/dL (1.3-4.6); Glomerular Filtration Rate 74.3 mL/min (90-130); Glucose 101 mg/dL (65-115); Osmolality Calculated 285 mOsm/kg (285-295); Potassium 4.7 mmol/L (3.5-5.1); Sodium 137 mmol/L (136-145); Total Bilirubin 0.4 mg/dL (0.15-1.2); Total Protein 6.5 g/dL (6.6-8.7)
[2024-08-06 11:05] LABS: Anion Gap 14.1 (5-19); Blood Urea Nitrogen 11 mg/dL (8-23); Calcium 8.7 mg/dL (8.5-10.5); Carbon Dioxide 27 mmol/L (22-29); Chloride 102 mmol/L (98-107); Glomerular Filtration Rate 83.9 mL/min (90-130); Glucose 108 mg/dL (65-115); Osmolality Calculated 288 mOsm/kg (285-295); Potassium 4.1 mmol/L (3.5-5.1); Sodium 139 mmol/L (136-145)
[2024-08-06 11:42] LABS: Calcium 8.6 mg/dL (8.5-10.5)
[2024-08-06 11:49] LABS: Parathyroid Hormone 49.9 pg/mL (15-65)
[2024-08-06 11:56] LABS: 25 Hydroxy Vitamin D 24 ng/mL (30-100)
== END 2024-08-14 23:59 | disposition home or self-care (01) ==
PROVIDERS: Internal Medicine; Absent Provider Nurse Practitioner Family; PCP Family Medicine; Visit Provider Internal Medicine Medical Oncology
DX: D47.3 Essential (hemorrhagic) thrombocythemia (principal); D68.51 Activated protein C resistance; E61.1 Iron deficiency; Z79.899 Other long term (current) drug therapy; Z79.01 Long term (current) use of anticoagulants; Z79.82 Long term (current) use of aspirin; Z79.64 Long term (current) use of myelosuppressive agent; Z87.891 Personal history of nicotine dependence; Z86.711 Personal history of pulmonary embolism
CPT/HCPCS: 36415; 80048; 80053; 82306; 82310; 83970; 85025

== ENCOUNTER 2024-08-31 10:47 | Oncology outpatient (recurring) (ONCR) | payer MEDICARE, SELFPAY ==
[2024-08-31 11:12] LABS: Basophils % 0.7 %; Eosinophils # 0.3 10^3/uL (0.0-0.8); Eosinophils % 4.8 %; Hematocrit 43.6 % (37-53); Lymphocytes # 0.8 10^3/uL (0.8-4.8); Lymphocytes % 14.9 %; Mean Corpuscular HGB Conc 32.8 g/dL (30-55); Mean Corpuscular Hemoglobin 31.1 pg (27-33); Mean Corpuscular Volume 94.8 fl (82-101); Mean Platelet Volume 10.3 fL (7.4-10.4); Monocytes # 0.5 10^3/uL (0.2-0.9); Monocytes % 8.7 %; Neutrophils # 3.82 10^3/uL (1.8-7.7); Neutrophils % 70.5 %; Nucleated Red Blood Cells % 0 %; Platelet Count 318 10^3/cmm (157-399); Red Cell Distribution Width 14.1 % (12.1-15.1); White Blood Count 5.42 10^3/uL (3.29-11.43)
[2024-08-31 11:29] LABS: Alanine Aminotransferase 21 U/L (0-41); Albumin Level 4.1 g/dL (3.5-5.2); Alkaline Phosphatase 88 U/L (40-130); Anion Gap 13.7 (5-19); Aspartate Amino Transferase 19 U/L (0-40); Blood Urea Nitrogen 11 mg/dL (8-23); Calcium 8.6 mg/dL (8.5-10.5); Carbon Dioxide 28 mmol/L (22-29); Chloride 105 mmol/L (98-107); Globulin 2.6 g/dL (1.3-4.6); Glomerular Filtration Rate 96.1 mL/min (90-130); Glucose 109 mg/dL (65-115); Osmolality Calculated 294 mOsm/kg (285-295); Potassium 4.7 mmol/L (3.5-5.1); Sodium 142 mmol/L (136-145); Total Bilirubin 0.3 mg/dL (0.15-1.2); Total Protein 6.7 g/dL (6.6-8.7)
== END 2024-09-14 23:59 | disposition home or self-care (01) ==
PROVIDERS: Absent Provider Nurse Practitioner Family; PCP Family Medicine; Visit Provider Internal Medicine Medical Oncology
DX: D47.3 Essential (hemorrhagic) thrombocythemia (principal); I26.99 Other pulmonary embolism without acute cor pulmonale; Z87.891 Personal history of nicotine dependence; Z79.899 Other long term (current) drug therapy; Z79.01 Long term (current) use of anticoagulants
CPT/HCPCS: 36415; 80053; 85025; 99214

== ENCOUNTER 2024-11-30 10:52 | Oncology outpatient (recurring) (ONCR) | payer MEDICARE, SELFPAY ==
[2024-11-30 11:13] LABS: Basophils # 0.1 10^3/uL (0.0-0.1); Eosinophils # 0.2 10^3/uL (0.0-0.8); Hematocrit 42.6 % (37-53); Lymphocytes # 0.8 10^3/uL (0.8-4.8); Lymphocytes % 13.8 %; Mean Corpuscular HGB Conc 33.3 g/dL (30-55); Mean Corpuscular Hemoglobin 31.6 pg (27-33); Mean Corpuscular Volume 94.9 fl (82-101); Mean Platelet Volume 10.3 fL (7.4-10.4); Monocytes # 0.5 10^3/uL (0.2-0.9); Monocytes % 8.3 %; Neutrophils # 4.22 10^3/uL (1.8-7.7); Neutrophils % 72.7 %; Nucleated Red Blood Cells % 0 %; Platelet Count 362 10^3/cmm (157-399); Red Blood Count 4.49 10^6/uL (3.85-5.65); Red Cell Distribution Width 14.3 % (12.1-15.1)
[2024-11-30 11:32] LABS: Alanine Aminotransferase 23 U/L (0-41); Albumin Level 3.9 g/dL (3.5-5.2); Alkaline Phosphatase 79 U/L (40-130); Anion Gap 11.7 (5-19); Aspartate Amino Transferase 24 U/L (0-40); Blood Urea Nitrogen 12 mg/dL (8-23); Carbon Dioxide 28 mmol/L (22-29); Chloride 104 mmol/L (98-107); Globulin 2.7 g/dL (1.3-4.6); Glomerular Filtration Rate 96.1 mL/min (90-130); Glucose 90 mg/dL (65-115); Osmolality Calculated 287 mOsm/kg (285-295); Potassium 4.7 mmol/L (3.5-5.1); Sodium 139 mmol/L (136-145); Total Bilirubin 0.3 mg/dL (0.15-1.2); Total Protein 6.6 g/dL (6.6-8.7)
== END 2024-12-14 23:59 | disposition home or self-care (01) ==
PROVIDERS: Absent Provider Nurse Practitioner Family; PCP Family Medicine; Visit Provider Internal Medicine Medical Oncology
DX: D47.3 Essential (hemorrhagic) thrombocythemia (principal); M01.X0 Direct infection of unspecified joint in infectious and parasitic diseases classified elsewhere; D68.51 Activated protein C resistance; Z79.899 Other long term (current) drug therapy; Z87.891 Personal history of nicotine dependence
CPT/HCPCS: 36415; 80053; 85025; 99214

== ENCOUNTER 2025-03-01 12:26 | Oncology outpatient (recurring) (ONCR) | payer MEDICARE, SELFPAY ==
[2025-03-01 12:44] LABS: Hematocrit 43.1 % (37-53); Hemoglobin 14.70 g/dL (11.27-16.99); Mean Corpuscular HGB Conc 34.1 g/dL (30-55); Mean Corpuscular Hemoglobin 32.6 pg (27-33); Mean Corpuscular Volume 95.6 fl (82-101); Nucleated Red Blood Cells % 0 %; Platelet Count 398 10^3/cmm (157-399); Red Blood Count 4.51 10^6/uL (3.85-5.65); White Blood Count 6.50 10^3/uL (3.29-11.43)
[2025-03-01 13:06] LABS: Alanine Aminotransferase 16 U/L (0-41); Albumin Level 4.0 g/dL (3.5-5.2); Alkaline Phosphatase 82 U/L (40-130); Anion Gap 13.1 (5-19); Aspartate Amino Transferase 17 U/L (0-40); Blood Urea Nitrogen 9 mg/dL (8-23); Calcium 8.7 mg/dL (8.5-10.5); Carbon Dioxide 26 mmol/L (22-29); Chloride 105 mmol/L (98-107); Creatinine Clr Calc Pharmacy 94.0754; Globulin 2.8 g/dL (1.3-4.6); Glucose 119 mg/dL (65-115); Iron 52 ug/dL (59-158); Osmolality Calculated 290 mOsm/kg (285-295); Potassium 4.1 mmol/L (3.5-5.1); Sodium 140 mmol/L (136-145); Total Iron Binding Capacity 267 mcg/dl; Total Protein 6.8 g/dL (6.6-8.7); Unsaturated Iron Binding 215 ug/dL (112-347)
== END 2025-03-16 23:59 | disposition home or self-care (01) ==
PROVIDERS: Nurse Practitioner Family; Absent Provider Nurse Practitioner Family; PCP Family Medicine; Visit Provider Nurse Practitioner
DX: D47.3 Essential (hemorrhagic) thrombocythemia (principal); D68.51 Activated protein C resistance; Z79.899 Other long term (current) drug therapy; Z87.891 Personal history of nicotine dependence
CPT/HCPCS: 36415; 80053; 83540; 83550; 85025; 99213

== ENCOUNTER 2025-05-17 08:46 | Outpatient (CLI) | payer MEDICARE, SELFPAY ==
--- NOTE | 2025-05-17 08:54 | FL_ITS ---
WS: [id number] Exam: FL barium swallow [id number] Date/Time of Exam: 05/17/2025 8:55 AM Reason For Exam: ESOPHAGEAL DYSHAGIA Fluoroscopy time: 1min [id number] minutes # of spot films: Oropharyngeal phase of swallowing was normal. The esophagus is patent. No intrinsic esophageal mass or stricture was identified. There is moderate tertiary spasm of the mid and lower esophagus with small sliding hiatal hernia. No reflux was observed during fluoroscopy. FL/FL barium swallow [id number] IMPRESSION: 1. Moderate tertiary spasm of the mid and lower esophagus and small sliding hia harley hernia. 2. No sign of intrinsic esophageal mass or stricture.
== END 2025-05-17 08:47 | disposition home or self-care (01) ==
PROVIDERS: PCP Family Medicine; Visit Provider Family Medicine
DX: R13.19 Other dysphagia (principal); K22.4 Dyskinesia of esophagus; K44.9 Diaphragmatic hernia without obstruction or gangrene
CPT/HCPCS: 74220

== ENCOUNTER 2025-05-31 12:15 | Oncology outpatient (recurring) (ONCR) | payer MEDICARE, SELFPAY ==
[2025-05-31 12:40] LABS: Hematocrit 42.1 % (37-53); Hemoglobin 14.10 g/dL (11.27-16.99); Mean Corpuscular HGB Conc 33.5 g/dL (30-55); Mean Corpuscular Hemoglobin 31.8 pg (27-33); Mean Corpuscular Volume 95.0 fl (82-101); Nucleated Red Blood Cells % 0 %; Platelet Count 366 10^3/cmm (157-399); Red Blood Count 4.43 10^6/uL (3.85-5.65); White Blood Count 5.62 10^3/uL (3.29-11.43)
[2025-05-31 13:01] LABS: Alanine Aminotransferase 19 U/L (0-41); Albumin Level 3.8 g/dL (3.5-5.2); Alkaline Phosphatase 76 U/L (40-130); Anion Gap 14.9 (5-19); Aspartate Amino Transferase 26 U/L (0-40); Blood Urea Nitrogen 13 mg/dL (8-23); Calcium 8.7 mg/dL (8.5-10.5); Carbon Dioxide 27 mmol/L (22-29); Chloride 105 mmol/L (98-107); Globulin 2.6 g/dL (1.3-4.6); Glucose 113 mg/dL (65-115); Iron 70 ug/dL (59-158); Osmolality Calculated 295 mOsm/kg (285-295); Potassium 4.9 mmol/L (3.5-5.1); Sodium 142 mmol/L (136-145); Total Iron Binding Capacity 214 mcg/dl; Total Protein 6.4 g/dL (6.6-8.7); Unsaturated Iron Binding 144 ug/dL (112-347)
== END 2025-06-16 23:59 | disposition home or self-care (01) ==
PROVIDERS: Nurse Practitioner; Absent Provider Nurse Practitioner Family; PCP Family Medicine; Visit Provider Nurse Practitioner Family
DX: D47.3 Essential (hemorrhagic) thrombocythemia (principal); D68.51 Activated protein C resistance; E61.1 Iron deficiency; Z79.899 Other long term (current) drug therapy; Z87.891 Personal history of nicotine dependence
CPT/HCPCS: 80053; 83540; 83550; 85025; 99213